=== PATIENT | female | born 1950 | race Caucasian/White ===

== ENCOUNTER 2017-04-11 14:11 | Observation (INO) | payer MEDICARE ==
[2017-04-11] VITALS (10 sets, daily range): BP systolic 119–167; BP diastolic 66–80; PULSE 63–86; RESP 14–17; TEMP 97.5–98.1; O2SAT 94–97
[~2017-04-11 14:11] MED LIST: AMLO10TA2 PO; DULO20 PO; GLIM4TAB PO; LISI10TA PO; MECL1TAB42 PO; MELO-1 PO; ZEGE20CA4 PO
[2017-04-11] MEDS ORDERED: LISI-515 PO (14:27)
[2017-04-11] MEDS ORDERED: ASPIRIN 325 MG TAB PO ONE (14:30)
[2017-04-11] MEDS ORDERED: SODIUM CHLORIDE 0.9% FLUSH 10 ML FLUSH IVF PRN (14:30)
[2017-04-11] MEDS: NITROGLYCERIN 0.4 MG SL 25 TABS/BTL SL SCH ×3 (14:36→15:06)
[2017-04-11 14:48] LABS: AUTOMATED NEUTROPHIL # 6.1 TH/MM3 (1.8-7.7); BASOPHIL # 0.1 TH/MM3 (0-0.2); BASOPHIL % 0.8 % (0.0-2.0); EOSINOPHIL # 0.2 TH/MM3 (0-0.4); EOSINOPHIL % 1.5 % (0.0-4.0); HEMATOCRIT 42.5 % (35.0-46.0); HEMO FLAGS DIFF FINAL; LYMPH % 29.9 % (9.0-44.0); LYMPHOCYTE # 3.1 TH/MM3 (1.0-4.8); MEAN CORPUSCULAR HEMOGLOBIN 28.6 PG (27.0-34.0); MEAN CORPUSCULAR HGB CONC 32.5 % (32.0-36.0); MONO % 7.7 % (0.0-8.0); NEUT % 60.1 % (16.0-70.0); PLATELET COUNT 301 TH/MM3 (150-450); RED BLOOD COUNT 4.83 MIL/MM3 (4.00-5.30); RED CELL DISTRIBUTION WIDTH 13.2 % (11.6-17.2); WHITE BLOOD COUNT 10.3 TH/MM3 (4.0-11.0)
--- NOTE | 2017-04-11 14:48 | PD ---
HPI Chief Complaint: Chest Pain Time Seen by Provider: 14:24 Travel History International Travel<30 days: No Contact w/Intl Traveler<30days: No Traveled to known affect area: No History of Present Illness HPI Patient is a 66-year-old female with history of hypertension as well as diabetes , presents to emergency room with her daughter with complaints of chest pain. Patient reports that she woke up this morning around 8 AM with left-sided chest pain. Reports that this chest pain woke her from sleep this morning. Patient reports that she has been having sharp and stabbing pain, with associated shortness of breath. Patient denies any diaphoresis with her symptoms, denies any nausea or vomiting. Patient reports that she has had chest pain in the past , reports the symptoms were different from today's. She reports that chest pain is nonradiating in nature. Patient denies history of coronary artery disease, denies history of cardiac stents, DE in the past. Patient reports that she has history of angina in the past, reports that she was worked up in the hospital but no to follow-up with a microwave oven assembler as an outpatient. Patient also complaining of right eye pain'; reports that pain is sharp and stabbing in nature and radiates to the back of her head. PFSH Past Medical History Hx Anticoagulant Therapy: No Arthritis: Yes Asthma: No Autoimmune Disease: No Heart Rhythm Problems: No Cancer: No Cardiac Catheterization: No Cardiovascular Problems: Yes (HTN, angina) High Cholesterol: Yes Chemotherapy: No Chest Pain: Yes Congestive Heart Failure: No COPD: No Cerebrovascular Accident: Yes (POSSIBLE 2014) Diabetes: Yes Patient Takes Glucophage: No Diminished Hearing: No Endocrine: Yes Gastrointestinal Disorders: Yes (CONSTIPATION) GERD: Yes Genitourinary: No Headaches: Yes Hiatal Hernia: No Heparin Induced Thrombocytopen: No Hypertension: Yes Immune Disorder: No Implanted Vascular Access Dvce: No Kidney Stones: Yes Musculoskeletal: Yes Neurologic: No Psychiatric: No Reproductive: No Respiratory: No Migraines: Yes Pneumonia: Yes Radiation Therapy: No Renal Failure: No Seizures: No Sickle Cell Disease: No Sleep Apnea: No Thyroid Disease: No Ulcer: No Menopausal: Yes : 3 Para: 3 Ovarian Cysts: Yes Past Surgical History Abdominal Surgery: Yes (HYSTERECTOMY) AICD: No Arteriovenous Shunt: No Cardiac Surgery: No Coronary Artery Bypass Graft: No Ear Surgery: No Endocrine Surgery: No Eye Surgery: No Genitourinary Surgery: No Gynecologic Surgery: Yes (OOPHORECTOMY X2) Hysterectomy: No Insulin Pump: No Joint Replacement: No Neurologic Surgery: No Oral Surgery: No Thoracic Surgery: No Tonsillectomy: Yes Other Surgery: Yes (lipoma removal on right arm) Family History Family Myocardial Infarction: No Social History Alcohol Use: No Tobacco Use: No Substance Use: No Allergies-Medications (Allergen,Severity, Reaction): Coded Allergies: Penicillin (Verified Allergy, Severe, HIVES/THROAT SWELLING, 04/11/17) Latex (Verified Allergy, Intermediate, Hives, 04/11/17) Metformin (Verified Allergy, Intermediate, GI UPSET, 04/11/17) Uncoded Allergies: INSULIN (Allergy, Intermediate, Rash, 12/15/16) no narcotics lowers b/p too much (Adverse Reaction, Severe, b/p drops with all narcotics, 02/10/14) Reported Meds & Prescriptions Reported Meds & Active Scripts Active Reported Lisinopril 20 Mg Tab 20 Mg PO DAILY Zegerid (Omeprazole-Sodium Bicarbonate) 20-1,100 Mg Cap 1 Cap PO DAILY Cymbalta DR (Duloxetine HCl) 20 Mg Capdr 30 Mg PO DAILY Meloxicam 15 Mg Tab 15 Mg PO DAILY Glimepiride 4 Mg Tab 4 Mg PO BIDAC Review of Systems General / Constitutional: No: Fever Eyes: No: Visual changes HENT: Positive: Headaches Cardiovascular: Positive: Chest Pain or Discomfort Respiratory: Positive: Shortness of Breath, No: Cough Gastrointestinal: No: Abdominal Pain Genitourinary: No: Dysuria Musculoskeletal: No: Pain Skin: No Rash Neurologic: Positive: Headache, No: Weakness Psychiatric: No: Depression Endocrine: No: Polydipsia Hematologic/Lymphatic: No: Easy Bruising Physical Exam Narrative GENERAL: Moderate distress SKIN: Focused skin assessment warm/dry. HEAD: Atraumatic. Normocephalic. EYES: Pupils equal and round. No scleral icterus. No injection or drainage. ENT: No nasal bleeding or discharge. Mucous membranes pink and moist. NECK: Trachea midline. No JVD. CARDIOVASCULAR: Regular rate and rhythm. No murmur appreciated. RESPIRATORY: No accessory muscle use. Clear to auscultation. Breath sounds equal bilaterally. GASTROINTESTINAL: Abdomen soft, non-tender, nondistended. Hepatic and splenic margins not palpable. MUSCULOSKELETAL: No obvious deformities. No clubbing. No cyanosis. No edema. NEUROLOGICAL: Awake and alert. No obvious cranial nerve deficits. Motor grossly within normal limits. Normal speech. PSYCHIATRIC: Appropriate mood and affect; insight and judgment normal. Data Data Last Documented VS Vital Signs Date Time Temp Pulse Resp B/P Pulse Ox O2 Delivery O2 Flow Rate FiO2 04/11/17 15:04 68 15 129/75 94 04/11/17 14:43 Room Air 04/11/17 14:22 98.1 Orders Electrocardiogram (04/11/17 14:25) B-Type Natriuretic Peptide (04/11/17 14:25) Ckmb (Isoenzyme) Profile (04/11/17 14:25) Complete Blood Count With Diff (04/11/17 14:25) Comprehensive Metabolic Panel (04/11/17 14:25) Magnesium (Mg) (04/11/17 14:25) Prothrombin Time / Inr (Pt) (04/11/17 14:25) Act Partial Throm Time (Ptt) (04/11/17 14:25) Troponin I (04/11/17 14:25) Lipase (04/11/17 14:25) Chest, Single Ap (04/11/17 14:25) Ecg Monitoring (04/11/17 14:25) Iv Access Insert/Monitor (04/11/17 14:25) Oximetry (04/11/17 14:25) Aspirin (Aspirin) (04/11/17 14:30) Sodium Chloride 0.9% Flush (Ns Flush) (04/11/17 14:30) Nitroglycerin Sl (Nitrostat Sl) (04/11/17 14:30) Acetaminophen (Tylenol) (04/11/17 15:15) Ct Brain W/O Iv Contrast(Rout) (04/11/17 ) Sodium Chlorid 0.9% 500 Ml Inj (Ns 500 M (04/11/17 15:15) Electrocardiogram (04/11/17 14:14) Labs Laboratory Tests Test 04/11/17 14:37 White Blood Count 10.3 TH/MM3 Red Blood Count 4.83 MIL/MM3 Hemoglobin 13.8 GM/DL Hematocrit 42.5 % Mean Corpuscular Volume 88.0 FL Mean Corpuscular Hemoglobin 28.6 PG Mean Corpuscular Hemoglobin 32.5 % Concent Red Cell Distribution Width 13.2 % Platelet Count 301 TH/MM3 Mean Platelet Volume 7.6 FL Neutrophils (%) (Auto) 60.1 % Lymphocytes (%) (Auto) 29.9 % Monocytes (%) (Auto) 7.7 % Eosinophils (%) (Auto) 1.5 % Basophils (%) (Auto) 0.8 % Neutrophils # (Auto) 6.1 TH/MM3 Lymphocytes # (Auto) 3.1 TH/MM3 Monocytes # (Auto) 0.8 TH/MM3 Eosinophils # (Auto) 0.2 TH/MM3 Basophils # (Auto) 0.1 TH/MM3 CBC Comment DIFF FINAL Differential Comment Prothrombin Time 10.7 SEC Prothromb Time International 1.0 RATIO Ratio Activated Partial 26.5 SEC Thromboplast Time Sodium Level 142 MEQ/L Potassium Level 4.0 MEQ/L Chloride Level 105 MEQ/L Carbon Dioxide Level 28.9 MEQ/L Anion Gap 8 MEQ/L Blood Urea Nitrogen 15 MG/DL Creatinine 0.82 MG/DL Estimat Glomerular Filtration 69 ML/MIN Rate Random Glucose 185 MG/DL Calcium Level 9.0 MG/DL Magnesium Level 1.9 MG/DL Total Bilirubin 0.3 MG/DL Aspartate Amino Transf 24 U/L (AST/SGOT) Alanine Aminotransferase 34 U/L (ALT/SGPT) Alkaline Phosphatase 71 U/L Total Creatine Kinase 67 U/L Troponin I LESS THAN 0.02 NG/ML B-Type Natriuretic Peptide 46 PG/ML Total Protein 7.3 GM/DL Albumin 3.5 GM/DL Lipase 111 U/L [facility] Medical Decision Making Medical Screen Exam Complete: Yes Emergency Medical Condition: Yes Interpretation(s) EKG at 1414 shows normal sinus rhythm at 76 beats for minute, patient has a left bundle branch block, left bundle branch block is seen on previous EKGs. EKG at 1423 shows normal sinus rhythm at 72 beats for minute, QT/QTc 422/447, left bundle branch block present, does not meet [place] criteria for acute DE EKG compared to previous ekg from 07/11/2016 Vital Signs Date Time Temp Pulse Resp B/P Pulse Ox O2 Delivery O2 Flow Rate FiO2 04/11/17 14:43 86 16 119/66 96 Room Air 04/11/17 14:27 96 Room Air 04/11/17 14:22 98.1 81 14 149/80 96 Differential Diagnosis Differential includes cephalgia, complicated migraine, ACS, arrhythmia, electrolyte abnormality Narrative Course Patient is a 66-year-old female who presents to emergency room with multiple complaints. Patient reports that she woke up this morning and has been having left-sided chest pain which is sharp and stabbing nature with associated shortness of breath. EKG was obtained, patient with left bundle branch block which is similar to previous EKGs. Placed on a environmental monitoring technician upon arrival to the emergency room. Aspirin as well as sublingual nitroglycerin ordered to see if this causes relief of pain. Lab work including cardiac enzymes ordered. Plan to monitor patient. Vital Signs Date Time Temp Pulse Resp B/P Pulse Ox O2 Delivery O2 Flow Rate FiO2 04/11/17 15:04 68 15 129/75 94 04/11/17 14:43 86 16 119/66 96 Room Air 04/11/17 14:27 96 Room Air 04/11/17 14:22 98.1 81 14 149/80 96 Laboratory Tests Test 04/11/17 14:37 White Blood Count 10.3 TH/MM3 (4.0-11.0) Red Blood Count 4.83 MIL/MM3 (4.00-5.30) Hemoglobin 13.8 GM/DL (11.6-15.3) Hematocrit 42.5 % (35.0-46.0) Mean Corpuscular Volume 88.0 FL (80.0-100.0) Mean Corpuscular Hemoglobin 28.6 PG (27.0-34.0) Mean Corpuscular Hemoglobin 32.5 % Concent (32.0-36.0) Red Cell Distribution Width 13.2 % (11.6-17.2) Platelet Count 301 TH/MM3 (150-450) Mean Platelet Volume 7.6 FL (7.0-11.0) Neutrophils (%) (Auto) 60.1 % (16.0-70.0) Lymphocytes (%) (Auto) 29.9 % (9.0-44.0) Monocytes (%) (Auto) 7.7 % (0.0-8.0) Eosinophils (%) (Auto) 1.5 % (0.0-4.0) Basophils (%) (Auto) 0.8 % (0.0-2.0) Neutrophils # (Auto) 6.1 TH/MM3 (1.8-7.7) Lymphocytes # (Auto) 3.1 TH/MM3 (1.0-4.8) Monocytes # (Auto) 0.8 TH/MM3 (0-0.9) Eosinophils # (Auto) 0.2 TH/MM3 (0-0.4) Basophils # (Auto) 0.1 TH/MM3 (0-0.2) CBC Comment DIFF FINAL Differential Comment Prothrombin Time 10.7 SEC (9.8-11.6) Prothromb Time International 1.0 RATIO Ratio Activated Partial 26.5 SEC Thromboplast Time (24.3-30.1) Sodium Level 142 MEQ/L (136-145) Potassium Level 4.0 MEQ/L (3.5-5.1) Chloride Level 105 MEQ/L (98-107) Carbon Dioxide Level 28.9 MEQ/L (21.0-32.0) Anion Gap 8 MEQ/L (5-15) Blood Urea Nitrogen 15 MG/DL (7-18) Creatinine 0.82 MG/DL (0.50-1.00) Estimat Glomerular Filtration 69 ML/MIN (>89) Rate Random Glucose 185 MG/DL (74-106) Calcium Level 9.0 MG/DL (8.5-10.1) Magnesium Level 1.9 MG/DL (1.5-2.5) Total Bilirubin 0.3 MG/DL (0.2-1.0) Aspartate Amino Transf 24 U/L (15-37) (AST/SGOT) Alanine Aminotransferase 34 U/L (10-53) (ALT/SGPT) Alkaline Phosphatase 71 U/L (45-117) Total Creatine Kinase 67 U/L (26-192) Troponin I LESS THAN 0.02 NG/ML (0.02-0.05) B-Type Natriuretic Peptide 46 PG/ML (0-100) Total Protein 7.3 GM/DL (6.4-8.2) Albumin 3.5 GM/DL (3.4-5.0) Lipase 111 U/L (73-393) Last Impressions Chest X-Ray 04/11/17 1425 Signed Impressions: Service Date/Time: Tuesday, April 11, 2017 14:35 - CONCLUSION: No acute disease. Chaparro Guzman MD Patient reevaluated, patient had complete relief of chest pain after 3 sublingual nitroglycerin. Patient with complete resolution of headache at this time. Plan to obs for chest pain. Physician Communication Physician Communication case reviewed with dr. dailey, who accepts pt to service Diagnosis Primary Impression: Chest pain Qualified Code: R07.9 - Chest pain, unspecified type Additional Impression: Cephalgia Qualified Code: R51 - Acute nonintractable headache, unspecified headache type Admitting Information Admitting Physician Requests: Observation Micaela Diego DO Apr 11, 2017 14:48
--- NOTE | 2017-04-11 14:54 | RADRPT ---
EXAM DATE/TIME: 04/11/2017 14:35 [facility] COMPARISON: No previous studies available for comparison. INDICATIONS : Chest pain, headache. MEDICAL HISTORY : Myocardial infarction. Hypertension SURGICAL HISTORY : None. ENCOUNTER: Initial ACUITY: 1 day PAIN SCORE: 7/10 LOCATION: Bilateral chest FINDINGS: A single view of the chest demonstrates the lungs to be symmetrically aerated without evidence of mas s, infiltrate or effusion. The cardiomediastinal contours are unremarkable. Osseous structures are intact. CONCLUSION: No acute disease. Chaparro Guzman MD on April 11, 2017 at 14:52 Board Certified Radiologist. This report was verified electronically.
[2017-04-11 14:58] LABS: CHLORIDE 105 MEQ/L (98-107); SODIUM (NA) 142 MEQ/L (136-145)
[2017-04-11 15:02] LABS: ANION GAP 8 MEQ/L (5-15); APTT (PATIENT) 26.5 SEC (24.3-30.1); BICARBONATE 28.9 MEQ/L (21.0-32.0); BLOOD UREA NITROGEN 15 MG/DL (7-18); MAGNESIUM 1.9 MG/DL (1.5-2.5); PROTHROMBIN TIME - PATIENT 10.7 SEC (9.8-11.6)
[2017-04-11 15:04] LABS: ALT (GPT) 34 U/L (10-53); AST (GOT) 24 U/L (15-37)
[2017-04-11 15:05] LABS: GLOMERULAR FILTRATION RATE 69 ML/MIN (>89)
[2017-04-11 15:06] LABS: TOTAL BILIRUBIN ADULT 0.3 MG/DL (0.2-1.0)
[2017-04-11 15:07] LABS: ALKALINE PHOSPHATASE 71 U/L (45-117)
[2017-04-11 15:08] LABS: CREATINE KINASE 67 U/L (26-192)
[2017-04-11] MEDS ORDERED: SODIUM CHLORID 0.9% 500 ML INJ 500 ML IV ONE (15:15)
[2017-04-11] MEDS ORDERED: ACETAMINOPHEN 500 MG CPLT PO ONE (15:15)
--- NOTE | 2017-04-11 15:58 | RADRPT ---
EXAM DATE/TIME: 04/11/2017 15:20 [facility] COMPARISON: No previous studies available for comparison. INDICATIONS : Headache. RADIATION DOSE: 65.02 CTDIvol (mGy) MEDICAL HISTORY : Cerebrovascular disease. Hypertension. Diabetes mellitus type 2.Migraine SURGICAL HISTORY : Hysterectomy. ENCOUNTER: Initial ACUITY: 1 day PAIN SCALE: 8/10 LOCATION: Right temporal and posterior cranium TECHNIQUE: Multiple contiguous axial images were obtained of the head. Using automated exposure control and adj ustment of the mA and/or kV according to patient size, radiation dose was kept as low as reasonably a chievable to obtain optimal diagnostic quality images. DICOM format image data is available electro nically for review and comparison. FINDINGS: CEREBRUM: The ventricles are normal for age. No evidence of midline shift, mass lesion, hemorrhage or acute in farction. No extra-axial fluid collections are seen. POSTERIOR FOSSA: The cerebellum and brainstem are intact. The 4th ventricle is midline. The cerebellopontine angle i s unremarkable. EXTRACRANIAL: The visualized portion of the orbits is intact. SKULL: The calvaria is intact. No evidence of skull fracture. CONCLUSION: 1. No acute intracranial abnormalities. Mucosal thickening left sphenoid sinus. Chaparro Guzman MD on April 11, 2017 at 15:54 Board Certified Radiologist. This report was verified electronically.
--- NOTE | 2017-04-11 17:09 | HHI.HP ---
[facility] Service [facility] Primary Care Physician Non-Staff Admission Diagnosis chest pain Diagnoses: Chief Complaint: Chest pain Travel History International Travel<30 Days: No Contact w/Intl Traveler <30 Da: No Traveled to Known Affected Are: No History of Present Illness Ms. Anna is a pleasant 66-year-old female with a history of hypertension, diabetes mellitus who presents to the emergency department due to chest pain. She woke up this morning around 8 AM with left-sided chest pain. She describes her pain as sharp and stabbing in quality. She reports no radiation of her chest pain and denies any diaphoresis or nausea or vomiting. She did have some associated shortness of breath. Denies any changes in bowel or bladder habits. Denies any cough, fever or chills. Review of Systems Except as stated in HPI: all other systems reviewed are Neg Past Family Social History Past Medical History Hypertension, depression, diabetes mellitus. Past Surgical History Hysterectomy, oophorectomy Reported Medications Lisinopril 20 Mg Tab 20 Mg PO DAILY Zegerid (Omeprazole-Sodium Bicarbonate) 20-1,100 Mg Cap 1 Cap PO DAILY Cymbalta DR (Duloxetine HCl) 20 Mg Capdr 30 Mg PO DAILY Meloxicam 15 Mg Tab 15 Mg PO DAILY Glimepiride 4 Mg Tab 4 Mg PO BIDAC Allergies: Coded Allergies: Penicillin (Verified Allergy, Severe, HIVES/THROAT SWELLING, 04/11/17) Latex (Verified Allergy, Intermediate, Hives, 04/11/17) Metformin (Verified Allergy, Intermediate, GI UPSET, 04/11/17) Uncoded Allergies: INSULIN (Allergy, Intermediate, Rash, 12/15/16) no narcotics lowers b/p too much (Adverse Reaction, Severe, b/p drops with all narcotics, 02/10/14) Family History No history of heart disease in the family. Social History Denies using tobacco, alcohol, illicit drugs. Physical Exam Vital Signs Vital Signs Date Time Temp Pulse Resp B/P Pulse Ox O2 Delivery O2 Flow Rate FiO2 04/11/17 15:04 68 15 129/75 94 04/11/17 14:43 86 16 119/66 96 Room Air 04/11/17 14:27 96 Room Air 04/11/17 14:22 98.1 81 14 149/80 96 Physical Exam GENERAL: This is a well-nourished, well-developed patient, in no apparent distress. SKIN: No rashes, ecchymoses or lesions. Warm and dry. HEAD: Atraumatic. Normocephalic. No temporal or scalp tenderness. EYES: Pupils equal round and reactive. No injection or drainage. ENT: Nose without bleeding, purulent drainage or septal hematoma. Airway patent. NECK: Trachea midline. No lymphadenopathy. Supple, nontender, no meningeal signs. CARDIOVASCULAR: Regular rate and rhythm without murmurs, gallops, or rubs. No JVD. RESPIRATORY: Clear to auscultation. Breath sounds equal bilaterally. No wheezes , rales, or rhonchi. GASTROINTESTINAL: Abdomen soft, non-tender, nondistended. No guarding. MUSCULOSKELETAL: Extremities without clubbing, cyanosis, or edema. NEUROLOGICAL: Awake and alert. Cranial nerves II through XII intact. No focal neurological deficits. Normal speech. Laboratory Laboratory Tests Test 04/11/17 14:37 White Blood Count 10.3 Red Blood Count 4.83 Hemoglobin 13.8 Hematocrit 42.5 Mean Corpuscular Volume 88.0 Mean Corpuscular Hemoglobin 28.6 Mean Corpuscular Hemoglobin 32.5 Concent Red Cell Distribution Width 13.2 Platelet Count 301 Mean Platelet Volume 7.6 Neutrophils (%) (Auto) 60.1 Lymphocytes (%) (Auto) 29.9 Monocytes (%) (Auto) 7.7 Eosinophils (%) (Auto) 1.5 Basophils (%) (Auto) 0.8 Neutrophils # (Auto) 6.1 Lymphocytes # (Auto) 3.1 Monocytes # (Auto) 0.8 Eosinophils # (Auto) 0.2 Basophils # (Auto) 0.1 CBC Comment DIFF FINAL Differential Comment Prothrombin Time 10.7 Prothromb Time International 1.0 Ratio Activated Partial 26.5 Thromboplast Time Sodium Level 142 Potassium Level 4.0 Chloride Level 105 Carbon Dioxide Level 28.9 Anion Gap 8 Blood Urea Nitrogen 15 Creatinine 0.82 Estimat Glomerular Filtration 69 Rate Random Glucose 185 Calcium Level 9.0 Magnesium Level 1.9 Total Bilirubin 0.3 Aspartate Amino Transf 24 (AST/SGOT) Alanine Aminotransferase 34 (ALT/SGPT) Alkaline Phosphatase 71 Total Creatine Kinase 67 Troponin I LESS THAN 0.02 B-Type Natriuretic Peptide 46 Total Protein 7.3 Albumin 3.5 Lipase 111 Result Diagram: 04/11/17 1437 04/11/17 1437 Imaging Last Impressions Chest X-Ray 04/11/17 1425 Signed Impressions: Service Date/Time: Tuesday, April 11, 2017 14:35 - CONCLUSION: No acute disease. Chaparro Guzman MD Head CT 04/11/17 0000 Signed Impressions: Service Date/Time: Tuesday, April 11, 2017 15:20 - CONCLUSION: 1. No acute intracranial abnormalities. Mucosal thickening left sphenoid sinus. Chaparro Guzman MD Assessment and Plan Problem List: (1) Chest pain ICD Code: R07.9 Status: Acute (2) Hypertension ICD Code: I10 Status: Acute (3) Diabetes ICD Code: E11.9 Status: Acute (4) GERD (gastroesophageal reflux disease) ICD Code: K21.9 Status: Acute Assessment and Plan Ms. Anna is a pleasant 66 year old female with a history of diabetes mellitus, hypertension who presents to the emergency department on 04/11/2017 with chest pain. Patient woke up at around 8 AM with left-sided sharp stabbing quality chest pain with no radiation or diaphoresis or nausea or vomiting. Patient's EKG showed left bundle branch block which was present previously as well. - Acute chest pain - Mostly atypical chest pain. Continue nitroglycerin patch. - Patient received aspirin in the ED. We'll continue aspirin 81 mg daily. - Troponins 2 negative so far. EKG reviewed by me shows left bundle branch block which is not a new finding. - We'll obtain lipid profile in the morning. Depending on her ASCVD score, initiate statin. - Hypertension - continue lisinopril 20 mg daily. - Diabetes mellitus - Start Levemir 7 units daily at bedtime and sliding scale insulin. - Hold off using by mouth medications for now. Full code. Lovenox 40mg Q24hrs. Problem Qualifiers (1) Chest pain: Qualified Code: R07.9 - Chest pain, unspecified type Jose Mims DO Apr 11, 2017 17:09
[2017-04-11] MEDS ORDERED: LACTULOSE SYRUP 20 GM/30 ML CUP PO PRN (17:15)
[2017-04-11] MEDS ORDERED: NALOXONE HCL 0.4 MG/ML AMP IV PRN (17:15)
[2017-04-11] MEDS ORDERED: SENNOSIDES 8.6 MG TAB PO PRN (17:15)
[2017-04-11] MEDS ORDERED: SODIUM CHLORIDE 0.9% FLUSH 10 ML FLUSH IV FLUSH PRN (17:15)
[2017-04-11] MEDS ORDERED: MAGNESIUM HYDROXIDE SUSP 30 ML CUP PO PRN (17:15)
[2017-04-11] MEDS ORDERED: ONDANSETRON HCL 4 MG/2 ML VIAL IVP PRN (17:15)
[2017-04-11] MEDS ORDERED: BISACODYL 10 MG SUPP RECTAL PRN (17:15)
[2017-04-11] MEDS ORDERED: NITROGLYCERIN 2% OINT 1 GM PACKET TOPICAL PRN (17:30)
[2017-04-11] MEDS ORDERED: ENOXAPARIN SODIUM 40 MG/0.4 ML SYRINGE SQ SCH (18:00)
[2017-04-11] MEDS ORDERED: GLUCAGON 1 MG/ML VIAL OTHER PRN (19:00)
[2017-04-11] MEDS ORDERED: DEXTROSE 50% IN WATER 50 ML VIAL(D50) IV PRN (19:00)
[2017-04-11] MEDS: ACETAMINOPHEN 325 MG TAB PO PRN (20:18)
[2017-04-11] MEDS: SODIUM CHLORIDE 0.9% FLUSH 10 ML FLUSH IV FLUSH SCH (20:22)
[2017-04-11] MEDS: DOCUSATE SODIUM 50 MG/SENNA 8.6 MG TAB PO SCH (20:22)
[2017-04-11] MEDS: INSULIN ASPART SUPPLEMENTAL SCALE SQ SCH (20:32)
[2017-04-11] MEDS ORDERED: INSULIN DETEMIR 100 UNITS/ML VIAL SQ SCH (21:00)
[2017-04-12] VITALS: BP 124/67; PULSE 64; RESP 20; TEMP 97.2; O2SAT 94
[2017-04-12 04:00] VITALS: BP 140/80; PULSE 72; RESP 18; TEMP 97.1; O2SAT 95
[2017-04-12] MEDS: INSULIN ASPART SUPPLEMENTAL SCALE SQ SCH ×2 (05:53→12:10)
[2017-04-12 08:36] VITALS: BP 148/105; PULSE 71; RESP 16; TEMP 97.2; O2SAT 97
[2017-04-12] MEDS ORDERED: DULoxetine HCl DR 30 MG CAP PO SCH (09:00)
[2017-04-12] MEDS ORDERED: ASPIRIN EC 81 MG TABEC PO SCH (09:00)
[2017-04-12] MEDS: SODIUM CHLORIDE 0.9% FLUSH 10 ML FLUSH IV FLUSH SCH (09:00)
[2017-04-12] MEDS ORDERED: LISINOPRIL 20 MG TAB PO SCH (09:00)
[2017-04-12 09:18] LABS: HDL CHOLESTEROL 34.4 MG/DL (40.0-60.0)
--- NOTE | 2017-04-12 09:25 | EKG ---
Date Performed: 04/11/2017 Time Performed: 22:00:56 PTAGE: 66 years EKG: Sinus rhythm WITH FREQUENT SUPRAVENTRICULAR PREMATURE COMPLEXES MARKED LEFT AXIS DEVIATION LEFT BUNDLE BRANCH BLO CK ABNORMAL ECG PREVIOUS TRACING : 04/11/2017 18.07 DOCTOR: Patrick Brown Interpretating Date/Time 04/12/2017 09:25:03
--- NOTE | 2017-04-12 09:36 | EKG ---
Date Performed: 04/11/2017 Time Performed: 18:07:49 PTAGE: 66 years EKG: Sinus rhythm WITH OCCASIONAL SUPRAVENTRICULAR PREMATURE COMPLEXES MARKED LEFT AXIS DEVIATION INTRAVENTRICULAR CON DUCTION DELAY ABNORMAL ECG PREVIOUS TRACING : 04/11/2017 14.23 DOCTOR: Patrick Brown Interpretating Date/Time 04/12/2017 09:34:26
--- NOTE | 2017-04-12 09:58 | EKG ---
Date Performed: 04/11/2017 Time Performed: 14:14:49 PTAGE: 66 years EKG: Sinus rhythm WITH FREQUENT SUPRAVENTRICULAR PREMATURE COMPLEXES MARKED LEFT AXIS DEVIATION LEFT BUNDLE BRANCH BLO CK LATERAL MYOCARDIAL INFARCTION INTERPRETATION BASED ON A DEFAULT AGE OF 40 YEARS NO PREVIOUS TRACING DOCTOR: Patrick Brown Interpretating Date/Time 04/12/2017 09:57:22
[2017-04-12] MEDS ORDERED: REGADENOSON INJ 0.4 MG/5 ML SYR IV ONE (10:17)
[2017-04-12] MEDS: ACETAMINOPHEN 325 MG TAB PO PRN (12:06)
[2017-04-12] MEDS: DOCUSATE SODIUM 50 MG/SENNA 8.6 MG TAB PO SCH (12:06)
[2017-04-12 13:12] VITALS: RESP 18
[2017-04-12] MEDS ORDERED: ASPI-99 PO (14:14)
--- NOTE | 2017-04-12 14:15 | HHI.DCPOC ---
Discharge Care Plan Diagnosis: (1) Hyperlipidemia (2) Hyperglycemia due to type 2 diabetes mellitus (3) Cephalgia (4) Diabetes (5) GERD (gastroesophageal reflux disease) (6) Chest pain (7) Hypertension (8) Family history of heart disease Goals to Promote Your Health * To prevent worsening of your condition and complications * To maintain your health at the optimal level Directions to Meet Your Goals Take your medications as prescribed Follow your dietary instruction Follow activity as directed Keep your appointments as scheduled Take your immunizations and boosters as scheduled If your symptoms worsen call your PCP, if no PCP go to Urgent Care Center or Emergency Room Smoking is Dangerous to Your Health. Avoid second hand smoke Call the 24-hour hour crisis hotline for domestic abuse at Dante Shrestha MD Apr 12, 2017 14:15
[2017-04-12] MEDS ORDERED: LIPI20TA PO (14:18)
--- NOTE | 2017-04-12 14:21 | HHI.DS ---
Discharge Summary Admission Date Apr 11, 2017 at 16:16 Discharge Date: Apr 12, 2017 Admitting Diagnosis chest pain (1) Chest pain ICD Code: R07.9 Diagnosis: Principal (2) Hypertension ICD Code: I10 Diagnosis: Principal (3) Diabetes ICD Code: E11.9 Diagnosis: Secondary (4) GERD (gastroesophageal reflux disease) ICD Code: K21.9 Diagnosis: Secondary Procedures none Brief History - From Admission Ms. Anna is a pleasant 66-year-old female with a history of hypertension, diabetes mellitus who presents to the emergency department due to chest pain. She woke up this morning around 8 AM with left-sided chest pain. She describes her pain as sharp and stabbing in quality. She reports no radiation of her chest pain and denies any diaphoresis or nausea or vomiting. She did have some associated shortness of breath. Denies any changes in bowel or bladder habits. Denies any cough, fever or chills. CBC/BMP: 04/11/17 1437 04/11/17 1437 Significant Findings Laboratory Tests Test 04/11/17 04/11/17 04/11/17 04/12/17 14:37 18:10 22:05 05:10 Estimat Glomerular Filtration 69 ML/MIN (>89) Rate Random Glucose 185 MG/DL (74-106) Troponin I LESS THAN 0.02 LESS THAN 0.02 LESS THAN 0.02 NG/ML NG/ML NG/ML (0.02-0.05) (0.02-0.05) (0.02-0.05) Triglycerides Level 163 MG/DL (42-150) HDL Cholesterol 34.4 MG/DL (40.0-60.0) Imaging Last Impressions Chest X-Ray 04/11/17 1425 Signed Impressions: Service Date/Time: Tuesday, April 11, 2017 14:35 - CONCLUSION: No acute disease. Chaparro Guzman MD Head CT 04/11/17 0000 Signed Impressions: Service Date/Time: Tuesday, April 11, 2017 15:20 - CONCLUSION: 1. No acute intracranial abnormalities. Mucosal thickening left sphenoid sinus. Chaparro Guzman MD PE at Discharge GENERAL: This is a well-nourished, well-developed patient, in no apparent distress. SKIN: No rashes, ecchymoses or lesions. Warm and dry. HEAD: Atraumatic. Normocephalic. No temporal or scalp tenderness. EYES: Pupils equal round and reactive. No injection or drainage. ENT: Nose without bleeding, purulent drainage or septal hematoma. Airway patent. NECK: Trachea midline. No lymphadenopathy. Supple, nontender, no meningeal signs. CARDIOVASCULAR: Regular rate and rhythm without murmurs, gallops, or rubs. No JVD. RESPIRATORY: Clear to auscultation. Breath sounds equal bilaterally. No wheezes , rales, or rhonchi. GASTROINTESTINAL: Abdomen soft, non-tender, nondistended. No guarding. MUSCULOSKELETAL: Extremities without clubbing, cyanosis, or edema. NEUROLOGICAL: Awake and alert. Cranial nerves II through XII intact. No focal neurological deficits. Normal speech. Pt update on day of discharge Denies chest pain, shortness of breath. Denies abdominal pain, nausea, vomiting , dictations. No arrhythmias on telemetry. Vital signs stable. Hospital Course Ms. Anna is a pleasant 66 year old female with a history of diabetes mellitus, hypertension who presents to the emergency department on 04/11/2017 with chest pain. Patient woke up at around 8 AM with left-sided sharp stabbing quality chest pain with no radiation or diaphoresis or nausea or vomiting. Patient's EKG showed left bundle branch block which was present previously as well. The patient was placed under observation in the medical floor monitor on telemetry for acute chest pain. Patient was placed on a nitroglycerin patch, received aspirin in the emergency department which was continued. Troponins were negative 2. EKG showed a left bundle branch block which upon review of previous EKGs was not new. Lipid profile was obtained and the patient was started on a statin as per her ASCVD score. Lisinopril was continued to treat the patient's hypertension which for the most part remain controlled during the hospital stay. Patient was started Levemir 7 units daily at bedtime and placed on SSI with insulin NovoLog and oral medications held during patient's admission to the hospital. The patient was placed on Lovenox and potassium for DVT prophylaxis. Patient underwent a nuclear stress testing which was unremarkable and the patient was discharged home. Pt Condition on Discharge: Stable Discharge Disposition: Discharge Home Discharge Time: <= 30 minutes Discharge Instructions DIET: Follow Instructions for: Heart Healthy Diet, Diabetic Diet Activities you can perform: Regular-No Restrictions Follow up Referrals: PCP Follow-up - 2 Weeks New Medications: Atorvastatin (Lipitor) 20 Mg Tab 20 MG PO HS Cholesterol Management #30 Ref [address] (Adult Aspirin EC Low Strength) 81 Mg Tabec 81 MG PO DAILY Blood Clot Prevention #31 TAB Continued Medications: Duloxetine DR (Cymbalta DR) 20 Mg Capdr 30 MG PO DAILY #30 Ref 0 CAP Glimepiride (Glimepiride) 4 Mg Tab 4 MG PO BIDAC Blood Sugar Management Ref 0 TAB Lisinopril (Lisinopril) 20 Mg Tab 20 MG PO DAILY #30 Ref 0 TAB Meloxicam (Meloxicam) 15 Mg Tab 15 MG PO DAILY Arthritis Pain #30 Ref 0 TAB Omeprazole-Sodium Bicarbonate (Zegerid) 20-1,100 Mg Cap 1 CAP PO DAILY #30 Ref 0 CAP Dante Shrestha MD Apr 12, 2017 14:21
[2017-04-12] MEDS ORDERED: ATORVASTATIN 20 MG TAB PO ONE (14:30)
[2017-04-12 17:19] LABS: HEMOGLOBIN A1a 1.3 %; HEMOGLOBIN A1b 2.1 %; HEMOGLOBIN Ao 82.4 %; HEMOGLOBIN LA1C 2.3 %
--- NOTE | 2017-04-13 09:41 | RADRPT ---
EXAM DATE/TIME: 04/12/2017 10:05 [facility] COMPARISON: MYOCARDIAL PERF PHARM SPECT, GATED W/EF, July 24, 2015, 10:48. INDICATIONS : Left chest pain with dyspnea. Abnormal EKG. Left bundle branch block. DOSE: 26.7 mCi Tc99m Myoview at stress. 8.6 mCi Tc99m Myoview at rest. 0.4 mg Lexiscan STRESS SYMPTOMS: Warm feeling. EJECTION FRACTION: 57% MEDICAL HISTORY : Myocardial infarction. Diabetes mellitus type 2. Gastroesophageal reflux disease. Hypertension. Strok e. SURGICAL HISTORY : Tonsillectomy. Hysterectomy. Oophorectomy. ENCOUNTER: Initial ACUITY: 1 day PAIN SCALE: 7/10 LOCATION: Left chest TECHNIQUE: The patient underwent pharmacologic stress with infusion of prescribed dose. Continuous ECG tracing was monitored during stress. Gated SPECT imaging was performed after stress and conventional SPECT i maging was performed at rest. The examination was performed on a SPECT/CT scanner, both attenuation and non-corrected datasets were reviewed. FINDINGS: DISTRIBUTION: The maximum perfused segment at stress is in the lateral wall. PERFUSION STUDY: The pattern of perfusion at stress is within normal limits. GATED STUDY: There is intact wall motion and thickening without hypokinetic or dyskinetic segments. CONCLUSION: Unremarkable myocardial perfusion scan. RISK CATEGORY: Low (<1% Annual Mortality Rate) Lauri Anderson MD on April 12, 2017 at 11:51 Board Certified Radiologist. This report was verified electronically.
--- NOTE | 2017-04-14 13:28 | TR ---
Date Performed: 04/12/2017 Time Performed: 10:27:55 DOCTOR: Lauri Pratt DRUG LIST: LiSINOPRIL ASA HCTZ Nitro AmLODIPINE CLINICAL HISTORY: CHEST PAIN LBBB REASON FOR TEST: Angina REASON FOR ENDING: OBSERVATION: CONCLUSION: Lexiscan stress test was performed under standard four minute protocol. Radionuclid e was injected one minute prior to ending the test. LBBB present throughout infusion. Nuclear imaging and interpretation are pending. COMMENTS:
== END 2017-04-12 15:41 | disposition home or self-care (01) ==
LOC: PHED 14:11 → PHEDA 16:16 → PH3B 17:11
PROVIDERS: ADMIT Hospitalist; ATTEND Hospitalist
DX: R07.89 Other chest pain (principal); I10 Essential (primary) hypertension; E11.65 Type 2 diabetes mellitus with hyperglycemia; K21.9 Gastro-esophageal reflux disease without esophagitis; R06.02 Shortness of breath; H57.11 Ocular pain, right eye; R51 Headache; R06.00 Dyspnea, unspecified; R94.31 Abnormal electrocardiogram [ECG] [EKG]; I44.7 Left bundle-branch block, unspecified; I20.9 Angina pectoris, unspecified; I25.2 Old myocardial infarction; E78.5 Hyperlipidemia, unspecified; E78.00 Pure hypercholesterolemia, unspecified; F32.9 Major depressive disorder, single episode, unspecified; M19.90 Unspecified osteoarthritis, unspecified site; Z79.899 Other long term (current) drug therapy; Z82.49 Family history of ischemic heart disease and other diseases of the circulatory system
CPT/HCPCS: 70450; 71010; 78452; 80053; 80061; 82550; 82948; 83036; 83690; 83735; 83880; 84484; 85025; 85610; 85730; 93005; 93017; 96360; 99285; A9502; G0378; J1650; J1815; J2785; J7040

== ENCOUNTER 2017-07-14 21:03 | Emergency (ER) | payer MEDICARE ==
[~2017-07-14] VITALS: Ht 152.4 cm; Wt 77.4 kg
[~2017-07-14 21:03] MED LIST changes: -AMLO10TA2 PO; +ASPI-99 PO; +LIPI20TA PO; +LISI-515 PO; -LISI10TA PO; -MECL1TAB42 PO
[2017-07-14 21:14] VITALS: BP 144/81; PULSE 92; RESP 20; TEMP 98.6; O2SAT 97
[2017-07-14] MEDS ORDERED: ALEV220T14 PO (21:23)
--- NOTE | 2017-07-14 21:36 | PD ---
HPI Chief Complaint: Pain: Acute or Chronic Time Seen by Provider: 21:27 Travel History International Travel<30 days: No Contact w/Intl Traveler<30days: No Traveled to known affect area: No History of Present Illness HPI 67-year-old female here for evaluation of left shoulder pain. The patient reports that the pain started 3 days ago after waking up from sleep. Pain is been constant, worsening, moderate to severe, worse with movement and palpation. She denies any trauma. She reports history of arthritis, however she states this pain feels a lot worse than her usual arthritic pains. She has taken Aleve without improvement in symptoms. No fevers. No chest pain. Chart review shows that the patient was admitted to the chest pain center in April of this year and had a normal nuclear stress test. PFSH Past Medical History Hx Anticoagulant Therapy: No Arthritis: Yes Asthma: No Autoimmune Disease: No Heart Rhythm Problems: No Cancer: No Cardiac Catheterization: No Cardiovascular Problems: Yes (HTN, angina) High Cholesterol: Yes Chemotherapy: No Chest Pain: Yes Congestive Heart Failure: No COPD: No Cerebrovascular Accident: Yes (POSSIBLE 2014) Diabetes: Yes Patient Takes Glucophage: Yes Diminished Hearing: No Endocrine: Yes Gastrointestinal Disorders: Yes (CONSTIPATION) GERD: Yes Genitourinary: No Headaches: Yes Hiatal Hernia: No Heparin Induced Thrombocytopen: No Hypertension: Yes Immune Disorder: No Implanted Vascular Access Dvce: No Kidney Stones: Yes Musculoskeletal: Yes Neurologic: No Psychiatric: No Reproductive: No Respiratory: No Migraines: Yes Pneumonia: Yes Radiation Therapy: No Renal Failure: No Seizures: No Sickle Cell Disease: No Sleep Apnea: No Thyroid Disease: No Ulcer: No ?: Not Menopausal: Yes : 3 Para: 3 Ovarian Cysts: Yes Past Surgical History Abdominal Surgery: Yes (HYSTERECTOMY) AICD: No Arteriovenous Shunt: No Cardiac Surgery: No Coronary Artery Bypass Graft: No Ear Surgery: No Endocrine Surgery: No Eye Surgery: No Genitourinary Surgery: No Gynecologic Surgery: Yes (OOPHORECTOMY X2) Hysterectomy: Yes Insulin Pump: No Joint Replacement: No Neurologic Surgery: No Oral Surgery: No (tonsillectomy ) Thoracic Surgery: No Tonsillectomy: Yes Other Surgery: Yes (lipoma removal on right arm) Family History Family Myocardial Infarction: No Social History Alcohol Use: No Tobacco Use: No Substance Use: No Allergies-Medications (Allergen,Severity, Reaction): Coded Allergies: penicillin G (Unverified Allergy, Severe, HIVES/THROAT SWELLING, 07/14/17) latex (Unverified Allergy, Intermediate, Hives, 07/14/17) metformin (Unverified Allergy, Intermediate, GI UPSET, 07/14/17) Uncoded Allergies: INSULIN (Allergy, Intermediate, Rash, 12/15/16) no narcotics lowers b/p too much (Adverse Reaction, Severe, b/p drops with all narcotics, 02/10/14) Reported Meds & Prescriptions Reported Meds & Active Scripts Active Lipitor (Atorvastatin Calcium) 20 Mg Tab 20 Mg PO HS Adult Aspirin EC Low Strength (Aspirin) 81 Mg Tabec 81 Mg PO DAILY Reported Aleve Arthritis (Naproxen Sodium) 220 Mg Tab 220 Mg PO BID Lisinopril 20 Mg Tab 20 Mg PO DAILY Zegerid (Omeprazole-Sodium Bicarbonate) 20-1,100 Mg Cap 1 Cap PO DAILY Cymbalta DR (Duloxetine HCl) 20 Mg Capdr 30 Mg PO DAILY Meloxicam 15 Mg Tab 15 Mg PO DAILY Glimepiride 4 Mg Tab 4 Mg PO BIDAC Review of Systems Except as stated in HPI: all other systems reviewed are Neg Physical Exam Narrative GENERAL: Well-developed, well-nourished, no apparent distress. SKIN: Focused skin assessment warm/dry. No rash. HEAD: Atraumatic. Normocephalic. EYES: Pupils equal and round. No scleral icterus. No injection or drainage. ENT: Mucous membranes pink and moist. NECK: Trachea midline. No JVD. CARDIOVASCULAR: Regular rate and rhythm. Bilateral distal radial pulses are brisk and equal. RESPIRATORY: No accessory muscle use. Clear to auscultation. Breath sounds equal bilaterally. MUSCULOSKELETAL: Left shoulder without obvious deformity, with diffuse tenderness, without overlying warmth and erythema, with limited range of motion secondary to pain. The rest of the patient's joints and extremities are without deformity, without tenderness, with normal range of motion. There is mild left lateral neck tenderness. No midline cervical spine step-off or tenderness. NEUROLOGICAL: Awake and alert. No obvious cranial nerve deficits. Motor grossly within normal limits. Normal speech. [employer] strength normal and equal bilaterally. Normal sensation in bilateral upper extremities. PSYCHIATRIC: Appropriate mood and affect; insight and judgment normal. Data Data Last Documented VS Vital Signs Date Time Temp Pulse Resp B/P (MAP) Pulse Ox O2 Delivery O2 Flow Rate FiO2 07/14/17 22:20 74 16 143/79 (100) 96 140/71 (94) 07/14/17 21:14 98.6 Orders Orders Electrocardiogram (07/14/17 21:33) Basic Metabolic Panel (Bmp) (07/14/17 21:33) Ckmb (Isoenzyme) Profile (07/14/17 21:33) Complete Blood Count With Diff (07/14/17 21:33) Prothrombin Time / Inr (Pt) (07/14/17 21:33) Act Partial Throm Time (Ptt) (07/14/17 21:33) Troponin I (07/14/17 21:33) Chest, Single Ap (07/14/17 21:33) Ecg Monitoring (07/14/17 21:33) Bilateral Bp Monitoring (07/14/17 21:33) Iv Access Insert/Monitor (07/14/17 21:33) Oximetry (07/14/17 21:33) Sodium Chloride 0.9% Flush (Ns Flush) (07/14/17 21:45) Shoulder, Complete (>2vws) (07/14/17 ) Tramadol (Ultram) (07/14/17 21:45) Labs Laboratory Tests Test 07/14/17 22:00 White Blood Count 10.4 TH/MM3 Red Blood Count 4.93 MIL/MM3 Hemoglobin 14.0 GM/DL Hematocrit 42.0 % Mean Corpuscular Volume 85.2 FL Mean Corpuscular Hemoglobin 28.5 PG Mean Corpuscular Hemoglobin Concent 33.4 % Red Cell Distribution Width 13.2 % Platelet Count 340 TH/MM3 Mean Platelet Volume 7.3 FL Neutrophils (%) (Auto) 60.7 % Lymphocytes (%) (Auto) 31.9 % Monocytes (%) (Auto) 5.2 % Eosinophils (%) (Auto) 1.6 % Basophils (%) (Auto) 0.6 % Neutrophils # (Auto) 6.3 TH/MM3 Lymphocytes # (Auto) 3.3 TH/MM3 Monocytes # (Auto) 0.5 TH/MM3 Eosinophils # (Auto) 0.2 TH/MM3 Basophils # (Auto) 0.1 TH/MM3 CBC Comment DIFF FINAL Differential Comment Prothrombin Time 10.7 SEC Prothromb Time International Ratio 1.0 RATIO Activated Partial Thromboplast Time 26.6 SEC Blood Urea Nitrogen 16 MG/DL Creatinine 0.95 MG/DL Random Glucose 197 MG/DL Calcium Level 9.0 MG/DL Sodium Level 135 MEQ/L Potassium Level 3.7 MEQ/L Chloride Level 100 MEQ/L Carbon Dioxide Level 27.4 MEQ/L Anion Gap 8 MEQ/L Estimat Glomerular Filtration Rate 58 ML/MIN Total Creatine Kinase 83 U/L Troponin I LESS THAN 0.02 NG/ML MDM Medical Decision Making Medical Screen Exam Complete: Yes Emergency Medical Condition: Yes Interpretation(s) EKG: Sinus, rate 79, leftward axis, LBBB, unchanged from prior. Differential Diagnosis Osteoarthritis, rotator cuff pain, ACS, brachial plexus injury, septic arthritis unlikely Narrative Course Vital signs show heart rate 74, blood pressure 143/79, pulse ox 96% on room air , oral temp of 98.6 degrees Fahrenheit. CBC is unremarkable. BMP is unremarkable aside from a random glucose of 497. Cardiac enzymes are negative. Chest x-ray: No active disease. Left shoulder x-ray: Osteoporosis of the left shoulder, no acute findings. Patient was given a dose of tramadol with only mild relief of symptoms. I do not believe her symptoms are cardiac in nature. I also do not believe she has a septic arthritis. At this point I believe she is stable for discharge home with outpatient follow-up with her primary care physician as well as an orthopedist this week. She was informed on when to return to the emergency department. She verbalizes understanding and agreement with plan. Diagnosis Primary Impression: Left shoulder pain Qualified Codes: M25.512 - Pain in left shoulder Additional Impression: Osteoarthritis Qualified Codes: M19.012 - Primary osteoarthritis, left shoulder Referrals: Della Moyer MD 3 days Orthopedist Primary Care Physician 3 days Additional Instructions: Follow-up with your primary care physician this week. Follow-up with orthopedist Dr. Moyer or an orthopedist of your choice this week. Return to the emergency department for worsening symptoms or any other concerns. Scripts Tramadol (Tramadol) 50 Mg Tab 50 MG PO Q8H Y for PAIN, #15 TAB 0 Refills Prov: Talon Fry MD 07/14/17 Disposition: 01 DISCHARGE HOME Condition: Stable Talon Fry MD Jul 14, 2017 21:36
[2017-07-14] MEDS ORDERED: traMADol HCL 50 MG TAB PO ONE (21:45)
[2017-07-14] MEDS ORDERED: SODIUM CHLORIDE 0.9% FLUSH 10 ML FLUSH IVF PRN (21:45)
[2017-07-14 22:09] LABS: AUTOMATED NEUTROPHIL # 6.3 TH/MM3 (1.8-7.7); BASOPHIL # 0.1 TH/MM3 (0-0.2); BASOPHIL % 0.6 % (0.0-2.0); EOSINOPHIL # 0.2 TH/MM3 (0-0.4); EOSINOPHIL % 1.6 % (0.0-4.0); HEMO FLAGS DIFF FINAL; LYMPH % 31.9 % (9.0-44.0); LYMPHOCYTE # 3.3 TH/MM3 (1.0-4.8); MEAN CELL VOLUME 85.2 FL (80.0-100.0); MEAN CORPUSCULAR HEMOGLOBIN 28.5 PG (27.0-34.0); MEAN CORPUSCULAR HGB CONC 33.4 % (32.0-36.0); MONO % 5.2 % (0.0-8.0); NEUT % 60.7 % (16.0-70.0); PLATELET COUNT 340 TH/MM3 (150-450); RED BLOOD COUNT 4.93 MIL/MM3 (4.00-5.30); RED CELL DISTRIBUTION WIDTH 13.2 % (11.6-17.2); WHITE BLOOD COUNT 10.4 TH/MM3 (4.0-11.0)
[2017-07-14 22:19] LABS: CHLORIDE 100 MEQ/L (98-107); POTASSIUM 3.7 MEQ/L (3.5-5.1); SODIUM (NA) 135 MEQ/L (136-145)
[2017-07-14 22:20] VITALS: BP_SYST 140; BP_SYST 143; BP_DIAS 71; BP_DIAS 79; PULSE 74; RESP 16; O2SAT 96
[2017-07-14 22:22] LABS: ANION GAP 8 MEQ/L (5-15); BICARBONATE 27.4 MEQ/L (21.0-32.0); BLOOD UREA NITROGEN 16 MG/DL (7-18)
[2017-07-14 22:25] LABS: APTT (PATIENT) 26.6 SEC (24.3-30.1); PROTHROMBIN TIME - PATIENT 10.7 SEC (9.8-11.6)
[2017-07-14 22:26] LABS: GLOMERULAR FILTRATION RATE 58 ML/MIN (>89)
--- NOTE | 2017-07-14 22:28 | RADRPT ---
EXAM DATE/TIME: 07/14/2017 21:57 [facility] COMPARISON: No previous studies available for comparison. INDICATIONS : Left shoulder pain. No known injury. MEDICAL HISTORY : Myocardial infarction. Gastroesophageal reflux disease. Stroke. Cerebrovascular disease. Hyperten dameon. Diabetes mellitus type 2.Migraine SURGICAL HISTORY : Tonsillectomy. Hysterectomy. Oophorectomy. ENCOUNTER: Initial ACUITY: 3 days PAIN SCORE: 7/10 LOCATION: Left upper extremity FINDINGS: Multiple view examination of the left shoulder demonstrates no evidence of fracture or dislocation. M oderate osteoarthritis of the a.c. joint. Mild osteoarthritis of the shoulder joint. There is normal range of motion between internal and external rotation. Bony mineralization is normal. CONCLUSION: 1. Osteoarthritis of the left shoulder as above. No acute findings. Chaparro Guzman MD on July 14, 2017 at 22:26 Board Certified Radiologist. This report was verified electronically.
--- NOTE | 2017-07-14 22:29 | RADRPT ---
EXAM DATE/TIME: 07/14/2017 21:57 [facility] COMPARISON: CHEST SINGLE AP, April 11, 2017, 14:35. INDICATIONS : Left chest and shoulder pain. MEDICAL HISTORY : Myocardial infarction. Gastroesophageal reflux disease. Stroke. Cerebrovascular disease. Hyperten dameon. Diabetes mellitus type 2.Migraine SURGICAL HISTORY : Hysterectomy. Tonsillectomy. Oophorectomy. ENCOUNTER: Initial ACUITY: 3 days PAIN SCORE: 7/10 LOCATION: Left chest FINDINGS: A single view of the chest demonstrates no focal consolidation or effusion. No pneumothorax. Heart si ze within normal limits. Tortuous aorta. Scoliosis. CONCLUSION: 1. No active disease. Scoliosis. Chaparro Guzman MD on July 14, 2017 at 22:26 Board Certified Radiologist. This report was verified electronically.
[2017-07-14 22:36] LABS: CREATINE KINASE 83 U/L (26-192)
[2017-07-14] MEDS ORDERED: TRAM50TA PO (23:25)
[2017-07-14 23:47] VITALS: BP 139/78
--- NOTE | 2017-07-15 05:02 | EKG ---
Date Performed: 07/14/2017 Time Performed: 21:50:45 PTAGE: 67 years EKG: Sinus rhythm MARKED LEFT AXIS DEVIATION LEFT BUNDLE BRANCH BLOCK POSSIBLE LATERAL MYOCARDIAL INFARCTION ABNORMAL ECG PREVIOUS TRACING : 04/11/2017 22.00 DOCTOR: Frandy Ghosh Interpretating Date/Time 07/15/2017 05:02:15
== END 2017-07-14 23:52 | disposition home or self-care (01) ==
LOC: PHED 21:03
DX: M25.512 Pain in left shoulder (principal); M19.012 Primary osteoarthritis, left shoulder; M81.0 Age-related osteoporosis without current pathological fracture; I44.7 Left bundle-branch block, unspecified; R94.31 Abnormal electrocardiogram [ECG] [EKG]; I10 Essential (primary) hypertension; E78.00 Pure hypercholesterolemia, unspecified; E11.9 Type 2 diabetes mellitus without complications; K21.9 Gastro-esophageal reflux disease without esophagitis
CPT/HCPCS: 71010; 73030; 80048; 82550; 84484; 85025; 85610; 85730; 93005

== ENCOUNTER → 2017-11-03 | Outpatient (CLI) | payer MEDICARE ==
[~2017-11-03] MED LIST changes: +ALEV220T14 PO; -ASPI-99 PO; +ASPI1TAB56 PO; -MELO-1 PO; +MELO15TA20 PO; +TRAM50TA PO
[2017-11-03 12:16] LABS: ALBUMIN 3.7 GM/DL (3.4-5.0); AST (GOT) 22 U/L (15-37); BICARBONATE 28.5 MEQ/L (21.0-32.0); BLOOD UREA NITROGEN 15 MG/DL (7-18); CALCIUM 8.9 MG/DL (8.5-10.1); CHLORIDE 106 MEQ/L (98-107); CHOLESTEROL 183 MG/DL (120-200); CREATININE 0.91 MG/DL (0.50-1.00); GLOMERULAR FILTRATION RATE 61 ML/MIN (>89); GLUCOSE,FASTING 213 MG/DL (74-99); SODIUM (NA) 142 MEQ/L (136-145); TRIGLYCERIDES 124 MG/DL (42-150)
[2017-11-03 12:19] LABS: ALKALINE PHOSPHATASE 87 U/L (45-117); ALT (GPT) 30 U/L (10-53); CHOLESTEROL/ HDL RATIO 4.71 RATIO; HDL CHOLESTEROL 38.8 MG/DL (40.0-60.0); LDL CHOLESTEROL 119 MG/DL (0-99); TOTAL BILIRUBIN ADULT 0.3 MG/DL (0.2-1.0); TOTAL PROTEIN 7.5 GM/DL (6.4-8.2)
[2017-11-03 15:25] LABS: HEMOGLOBIN A1C 8.9 % (4.3-6.0)
== END ==
LOC: PLAB 08:38
PROVIDERS: ATTEND Family Medicine
DX: E78.2 Mixed hyperlipidemia (principal); I10 Essential (primary) hypertension; E11.65 Type 2 diabetes mellitus with hyperglycemia
CPT/HCPCS: 36415; 80053; 80061; 83036

== ENCOUNTER 2018-08-08 14:28 | Observation (INO) ==
--- NOTE | 2018-08-08 14:59 | XR ---
EXAM DATE: 08/08/2018 2:56 PM EDT AGE/SEX: 68 years / Female INDICATIONS: Chest pain and shortness of breath. CLINICAL DATA: This is the patient's initial encounter. Patient reports that signs and symptoms have been present for 1 day and indicates a pain score of 7/10. MEDICAL/SURGICAL HISTORY: Hypertension. Diabetes. None. COMPARISON: [facility], CHEST SINGLE AP, 07/14/2017. . FINDINGS: Moderate plaque lumbar scoliosis. Heart is minimally enlarged. Vascularity is normal. There is no ove rt congestive failure, pleural effusion or pneumothorax. CONCLUSION: Negative chest for acute disease Mild compensated cardiomegaly, stable from comparison study. Electronically signed by: Ellis Kiran MD 08/08/2018 2:57 PM EDT
[2018-08-08] MEDS ORDERED: Aspirin 325 MG Tablet PO ONE (15:00)
--- NOTE | 2018-08-08 15:10 | ED ---
HPI General Chief Complaint: Chest Pain Stated Complaint: chest pain Time Seen by Provider: 08/08/18 14:49 History of Present Illness HPI narrative: Patient presents to the emergency department department complaining of chest pain that started today around 10:00 this morning while she was in bed. Pain described as being left-sided, intermittent, minutes in duration, no aggravating or alleviating factors, pain is 7-8 out of 10, radiating to her neck and head, new onset. She denies fever, sweating, lower extremity edema, recent travel, abdominal pain, but reports shortness of breath and chronic back pain. Of note patient had a negative stress test April 12, 2017. Related Data Home Medications Medication Instructions Recorded Confirmed amlodipine 10 mg PO DAILY 04/25/18 08/08/18 duloxetine 1 cap PO DAILY 04/25/18 08/08/18 glimepiride 4 mg PO QAM 04/25/18 08/08/18 lisinopril 20 mg PO DAILY 04/25/18 08/08/18 meloxicam 15 mg PO DAILY 04/25/18 08/08/18 omeprazole-sodium bicarbonate 1 cap PO DAILY 04/25/18 08/08/18 tramadol 50 mg PO Q8H PRN 04/25/18 08/08/18 Allergies Allergy/AdvReac Type Severity Reaction Status Date / Time penicillin G Allergy Severe HIVES/THROAT Verified 08/08/18 14:35 SWELLING latex Allergy Intermediate Hives Verified 08/08/18 14:35 metformin Allergy Intermediate GI UPSET Verified 08/08/18 14:35 INSULIN Allergy Intermediate Rash Uncoded 08/08/18 14:35 no narcotics lowers b/p too AdvReac Severe b/p drops Uncoded 08/08/18 14:35 much with all narcotics Review of Systems ROS: all other systems reviewed are negative [facility] Medical History Medical History Chronic back pain (Acute) Diabetes (Acute) HTN (hypertension) (Acute) Herniated disc (Acute) History of hysterectomy (Acute) Sciatica (Acute) Social History Social History Substance History: No History of Abuse Smoking Status: Never smoker How Often Do You Have a Drink Containing Alcohol: Never Recent Travel in [place] within the Last 8 Weeks: No Recent Out of Country Travel within the Last 8 Weeks: No Immunization History Tetanus Immunization: Unsure Exam Narrative Exam Narrative: GENERAL: No acute distress. SKIN: Focused skin assessment warm/dry. HEAD: Atraumatic. Normocephalic. EYES: Pupils equal and round. No scleral icterus. No injection or drainage. ENT: No nasal bleeding or discharge. Mucous membranes pink and moist. NECK: Trachea midline. No JVD. CARDIOVASCULAR: Regular rate and rhythm. No murmur appreciated. RESPIRATORY: No accessory muscle use. Clear to auscultation. Breath sounds equal bilaterally. GASTROINTESTINAL: Abdomen soft, non-tender, nondistended. Hepatic and splenic margins not palpable. MUSCULOSKELETAL: No obvious deformities. No clubbing. No cyanosis. No edema. Right calf tender to palpation. NEUROLOGICAL: Awake and alert. No obvious cranial nerve deficits. Motor grossly within normal limits. Normal speech. PSYCHIATRIC: Appropriate mood and affect; insight and judgment normal. Course Initial Documented Vital Signs Temperature 97.7 F 08/08/18 14:31 Pulse Rate 68 08/08/18 14:31 Respiratory Rate 18 08/08/18 14:31 Blood Pressure 145/87 H 08/08/18 14:31 Pulse Oximetry 96 08/08/18 14:31 Last Documented Vital Signs Temperature 97.7 F 08/08/18 14:31 Pulse Rate 72 08/08/18 16:15 Respiratory Rate 18 08/08/18 16:15 Blood Pressure 131/71 08/08/18 16:15 Pulse Oximetry 94 L 08/08/18 16:15 Medical Decision Making [facility] Narrative Medical decision making narrative: Patient presents to the emergency department with chest pain. Patient placed on telemetry monitor, continuous pulse ox, and IV access obtained. EKG, chest x-ray, labs, aspirin 325 mg p.o., and nitroglycerin 1 sublingual tab 0.4 mg ordered. 1623: NTG helped the pain. Ordered another. Workup essentially negative, calling hospitalist for admission. 1700: Hospitalist request chest pain obs admission. Spoke to Trish from [facility], patient appropriate for [facility], admitted to [facility]. She's chest pain free, 0.5 in NTG applied to chest wall. U/S neg for DVT, stable cardiomegaly. 1st troponin negative. Medical Screen Exam Complete: Yes Emergency Medical Condition: Yes Lab Data Result diagrams: 08/08/18 15:11 08/08/18 15:11 Lab Results 08/08/18 08/08/18 08/08/18 Range/Units 15:11 15:11 15:11 WBC 8.6 (4.0-11.0) th/mm3 RBC 4.50 (4.00-5.30) mil/mm3 Hgb 13.8 (11.6-15.3) gm/dL Hct 39.4 (35.0-46.0) % MCV 87.5 (80.0-100.0) fL MCH 30.6 (27.0-34.0) pg MCHC 35.0 (32.0-36.0) % RDW 13.8 (11.6-17.2) % Plt Count 242 (150-450) th/mm3 MPV 7.6 (7.0-11.0) fL Neut % (Auto) 57.7 (16.0-70.0) % Lymph % (Auto) 31.6 (9.0-44.0) % [place] % (Auto) 8.2 H (0.0-8.0) % Eos % (Auto) 1.7 (0.0-4.0) % Baso % (Auto) 0.8 (0.0-2.0) % Neut # (Auto) 5.0 (1.8-7.7) th/mm3 Lymph # (Auto) 2.7 (1.0-4.8) th/mm3 [place] # (Auto) 0.7 (0.0-0.9) th/mm3 Eos # (Auto) 0.1 (0.0-0.4) th/mm3 Baso # (Auto) 0.1 (0.0-0.2) th/mm3 WBC Differential . Differential Comment Auto diff final PT (9.8-11.6) sec INR Ratio APTT (24.3-30.1) sec Sodium Cancelled Potassium Cancelled Chloride Cancelled Carbon Dioxide Cancelled Anion Gap Cancelled BUN Cancelled Creatinine Cancelled Estimated GFR Cancelled Random Glucose Cancelled Calcium Cancelled Prot Corrected Calcium Cancelled Magnesium (1.5-2.5) mg/dL Total Bilirubin Cancelled AST Cancelled ALT Cancelled Alkaline Phosphatase Cancelled Total Creatine Kinase (26-192) U/L CK-MB (CK-2) (0.5-3.6) ng/mL Troponin I Cancelled B-Natriuretic Peptide 18 (0-100) pg/mL Total Protein Cancelled Albumin Cancelled 08/08/18 08/08/18 Range/Units 15:11 15:11 WBC (4.0-11.0) th/mm3 RBC (4.00-5.30) mil/mm3 Hgb (11.6-15.3) gm/dL Hct (35.0-46.0) % MCV (80.0-100.0) fL MCH (27.0-34.0) pg MCHC (32.0-36.0) % RDW (11.6-17.2) % Plt Count (150-450) th/mm3 MPV (7.0-11.0) fL Neut % (Auto) (16.0-70.0) % Lymph % (Auto) (9.0-44.0) % [place] % (Auto) (0.0-8.0) % Eos % (Auto) (0.0-4.0) % Baso % (Auto) (0.0-2.0) % Neut # (Auto) (1.8-7.7) th/mm3 Lymph # (Auto) (1.0-4.8) th/mm3 [place] # (Auto) (0.0-0.9) th/mm3 Eos # (Auto) (0.0-0.4) th/mm3 Baso # (Auto) (0.0-0.2) th/mm3 WBC Differential Differential Comment PT 10.1 (9.8-11.6) sec INR 1.0 Ratio APTT 24.9 (24.3-30.1) sec Sodium 138 Potassium 4.0 Chloride 104 Carbon Dioxide 26.4 Anion Gap 8 BUN 22 H Creatinine 0.72 Estimated GFR 80 L Random Glucose 80 Calcium 9.2 Prot Corrected Calcium Magnesium 2.0 (1.5-2.5) mg/dL Total Bilirubin 0.2 AST 25 ALT 39 Alkaline Phosphatase 76 Total Creatine Kinase 175 (26-192) U/L CK-MB (CK-2) 2.8 (0.5-3.6) ng/mL Troponin I Less than 0.02 L B-Natriuretic Peptide (0-100) pg/mL Total Protein 7.5 Albumin 3.8 Imaging Data Radiologist's impression: Chest X-Ray 08/08/18 14:36 CONCLUSION: Negative chest for acute disease Mild compensated cardiomegaly, stable from comparison study. Venous Doppler Study 08/08/18 15:10 CONCLUSION: No venous thrombosis is identified within either lower extremity. ECG Data Attestation: I personally reviewed and interpreted this ECG as follows: (Sinus rhythm, left axis deviation, rate 71, left bundle branch block, negative for Sgarbossa criteria, similar to EKG July 14, 2017.) Discharge Plan Discharge Disposition Patient Disposition: 30 Still Patient Discharge Condition Condition: Stable Discharge Details Diagnosis: Chest pain Physicians Team ED Provider: Emerald Richey Primary Care Provider: Lori Flores Attending Provider: Lauri Pratt Discharge Interventions Interventions: Vital Signs Last Done: 08/08/18 16:15 Status ED Status: Admitted Observation Patient
[2018-08-08 15:31] LABS: Baso # (Auto) 0.1 th/mm3 (0.0-0.2); Baso % (Auto) 0.8 % (0.0-2.0); Eos # (Auto) 0.1 th/mm3 (0.0-0.4); Eos % (Auto) 1.7 % (0.0-4.0); Hematocrit 39.4 % (35.0-46.0); Hemoglobin 13.8 gm/dL (11.6-15.3); Lymph # (Auto) 2.7 th/mm3 (1.0-4.8); Lymph % (Auto) 31.6 % (9.0-44.0); Mean Corpuscular Hemoglobin 30.6 pg (27.0-34.0); Mean Corpuscular Volume 87.5 fL (80.0-100.0); Mean Platelet Volume 7.6 fL (7.0-11.0); Mono # (Auto) 0.7 th/mm3 (0.0-0.9); Mono % (Auto) 8.2 % (0.0-8.0); Neut % (Auto) 57.7 % (16.0-70.0); Platelet Count 242 th/mm3 (150-450); Red Cell Distribution Width 13.8 % (11.6-17.2); White Blood Count 8.6 th/mm3 (4.0-11.0)
[2018-08-08 15:50] LABS: Activated Partial Thrombo Time 24.9 sec (24.3-30.1); Prothrombin Time 10.1 sec (9.8-11.6)
[2018-08-08 16:09] LABS: Albumin 3.8 g/dL (3.4-5.0); Aspartate Aminotransferase 25 U/L (15-37); Blood Urea Nitrogen 22 mg/dL (7-18); Creatine Kinase 175 U/L (26-192); Glomerular Filtration Rate 80 mL/min (>89); Glucose,Random 80 mg/dL (74-106)
--- NOTE | 2018-08-08 16:12 | US ---
EXAM DATE: 08/08/2018 4:09 PM EDT AGE/SEX: 68 years / Female INDICATIONS: Bilateral leg swelling. CLINICAL DATA: This is the patient's subsequent encounter. Patient reports that signs and symptoms h ave been present for 2 days and indicates a pain score of 1/10. MEDICAL/SURGICAL HISTORY: Hypertension. Chronic back pain. Diabetes. Herniated disc. Sciatica. Hysterectomy. COMPARISON: No prior exams available for comparison. TECHNIQUE: Venous ultrasound of both lower extremities was performed from the inguinal ligament to t he proximal calf. Real-time, color Doppler and spectral tracing, compression and augmentation techni ques were used. FINDINGS: Right Leg: Normal compression of the deep venous system from the inguinal region to the proximal adela f. No echogenic clot is seen. Normal response of the venous system to augmentation and respiration. Left Leg: Normal compression of the deep venous system from the inguinal region to the proximal calf . No echogenic clot is seen. Normal response of the venous system to augmentation and respiration. Other: None. CONCLUSION: No venous thrombosis is identified within either lower extremity. Electronically signed by: Curry Nix MD 08/08/2018 4:11 PM EDT
[2018-08-08 16:17] LABS: Alanine Aminotransferase 39 U/L (10-53); Alkaline Phosphatase 76 U/L (45-117); Anion Gap 8 meq/L (5-15); Calcium 9.2 mg/dL (8.5-10.1); Carbon Dioxide 26.4 meq/L (21.0-32.0); Chloride 104 meq/L (98-107); Sodium 138 meq/L (136-145); Total Protein 7.5 g/dL (6.4-8.2)
[2018-08-08 16:31] LABS: Creatine Kinase MB 2.8 ng/mL (0.5-3.6)
[2018-08-08 19:21] LABS: Creatine Kinase 155 U/L (26-192)
[2018-08-08 19:34] LABS: Creatine Kinase MB 2.4 ng/mL (0.5-3.6)
[2018-08-08 21:29] LABS: Bilirubin,Urine Negative (Negative); Clarity,Urine Clear (Clear); Color,Urine Yellow (Yellw/Straw); Glucose,Urine (UA) Negative (Negative); Hyaline Casts,Urine 4 /lpf (0-3); Leukocyte Esterase,Urine Negative (Negative); Mucus,Urine Few /lpf (Occasional); Nitrite,Urine Negative (Negative); Specific Gravity,Urine 1.014 (1.002-1.035); Squamous Epithelial Cell,Urine 1 /hpf (0-5)
[2018-08-08 21:49] LABS: Creatine Kinase 149 U/L (26-192)
--- NOTE | 2018-08-09 09:00 | P.HPCA ---
History of Present Illness Primary Care Physician: Lori Flores MD Chief Complaint: Chest pain History of Present Illness: 68-year-old female with history of hypertension, hyperlipidemia, and diabetes presents the emergency room for further evaluation of worsening intermittent chest pain beginning 5-6 days ago. Discomfort originally short lived and extremely mild therefore didn't pay much attention to discomfort. Yesterday morning felt fatigue so decided to go back to bed. While laying in bed around 10 am chest discomfort returned, somewhat more intense. Location left anterior chest. Characterized as tightness and pressure. Radiation to neck/throat. Associated symptoms included headache and dyspnea. Denied nausea, vomiting, or diaphoresis. Duration 15-30 minutes, subsiding for approx 1 hour before returning for approx 30 minutes. Called her daughter. Daughter took her to PCP were an EKG was completed, then directed her to ER for further evaluation. Endorses similar pain in the past over the last few months. Around 4am this morning reports left anterior chest discomfort changed characteristic to a " deep inside needle pain." No radiation. No associating symptoms. Hurts to take a deep breath and easily reproduced with palpation. Duration constant. No precipitating or relieving factors. Reports history of cardiac catheterization a few years ago, believes report to be completely normal. No recent injury or illness. Past cardiac testing 04/12/17 Lexiscan-unremarkable 07/27/15 Cardiac catheterization (Dr. Crisostomo) Conclusions: 1. Widely patent coronary arteries. 2. Preserved left ventricular systolic function. 07/24/15 Lexiscan-small area of perfusion defect at stress in the septal wall. Normal ejection function and wall motion. Social history Known hypertension, hyperlipidemia, and diabetes. Reports last hemoglobin A1c 12%-2 months ago. Reports intolerance to statins. Lifelong non-smoker. No alcohol or recreational drug use. Lives with her daughter. Reports an active lifestyle. Assisting caring for 16- year-old autistic grandson. Family history Noncontributory for early onset cardiovascular disease. X3 Sisters diagnosed with lupus, all from complications from lupus. One sister due to complications chronic kidney disease and diabetes. - Diagnosis (1) Atypical chest pain (2) History of diabetes mellitus, type II (3) History of hypertension (4) History of gastroesophageal reflux (GERD) Review of Systems All other systems reviewed negative except as stated in HPI PMFSH - History History Provided By: Patient - Medical History Medical History: Medical History (Last Updated 08/09/18 @ 13:46 by JUDY Wade) Chronic back pain Diabetes HTN (hypertension) Herniated disc History of hysterectomy Left bundle branch block Sciatica - Surgical History Surgical History: Surgical History (Last Updated 08/09/18 @ 09:36 by JUDY Wade) History of bilateral oophorectomy History of tonsillectomy - Family History Family History: Family History (Last Updated 08/09/18 @ 13:47 by JUDY Wade) Sister Lupus (systemic lupus erythematosus) Sister Lupus (systemic lupus erythematosus) Sister Lupus (systemic lupus erythematosus) Sister Diabetes mellitus type 2 with complications Mother Diabetes mellitus type 2 with complications CVA (cerebral vascular accident) Father CVA (cerebral vascular accident) - Tobacco History Second Hand Smoke Exposure: No Tobacco Use In Past 30 Days: No Smoking Status: Never smoker - Alcohol History How Often Do You Have a Drink Containing Alcohol: Never - Substance Use History Substance History: No History of Abuse - Travel History History of Recent Travel: No Recent Travel in the [place] Within the Last 8 Weeks: No Recent Travel Out of the Country Within the Last 8 Weeks: No - Immunization History Tetanus Immunization: Unsure Medications and Allergies Active Medications: Active Medications Sodium Chloride (Ns Flush) 2 ml IV.FLUSH UNSCH PRN PRN Reason: FLUSH AFTER USING IV ACCESS Sodium Chloride (Ns Flush) 2 ml IV.FLUSH BID JENNA Last Admin: 08/08/18 21:26 Dose: 2 ml Sodium Chloride (Ns Flush) 2 ml IV.FLUSH PRN PRN PRN Reason: FLUSH AFTER USING IV ACCESS Allergies Allergy/AdvReac Type Severity Reaction Status Date / Time penicillin G Allergy Severe HIVES/THROAT Verified 08/08/18 14:35 SWELLING latex Allergy Intermediate Hives Verified 08/08/18 14:35 metformin Allergy Intermediate GI UPSET Verified 08/08/18 14:35 INSULIN Allergy Intermediate Rash Uncoded 08/08/18 14:35 no narcotics lowers b/p too AdvReac Severe b/p drops Uncoded 08/08/18 14:35 much with all narcotics Home Medications Medication Instructions Recorded Confirmed Type amlodipine 10 mg PO DAILY 04/25/18 08/08/18 History duloxetine 1 cap PO DAILY 04/25/18 08/08/18 History glimepiride 4 mg PO QAM 04/25/18 08/08/18 History lisinopril 20 mg PO DAILY 04/25/18 08/08/18 History meloxicam 15 mg PO DAILY 04/25/18 08/08/18 History omeprazole-sodium bicarbonate 1 cap PO DAILY 04/25/18 08/08/18 History tramadol 50 mg PO Q8H PRN 04/25/18 08/08/18 History Exam Vital signs: Vital Signs 08/08/18 14:31 08/08/18 14:45 08/08/18 14:55 Temperature 97.7 F Pulse Rate 68 78 Respiratory Rate 18 18 Blood Pressure 145/87 H 165/80 H Pulse Oximetry 96 96 98 08/08/18 16:15 08/08/18 20:00 08/09/18 00:00 Temperature 97.8 F 98.5 F Pulse Rate 72 67 71 Respiratory Rate 18 14 16 Blood Pressure 131/71 143/72 H 117/60 Pulse Oximetry 94 L 94 L 94 L 08/09/18 04:00 08/09/18 07:47 08/09/18 08:00 Temperature 98.1 F 98.6 F Pulse Rate 81 72 84 Respiratory Rate 14 18 Blood Pressure 142/65 H 167/78 H Pulse Oximetry 95 98 Intake & Output 08/08/18 08/09/18 08/09/18 18:59 06:59 18:59 Weight 78.018 kg Other: # Voids 1 Date of Last Bowel Movement 08/07/18 Narrative: GENERAL: Alert WN, WD, NAD, pleasant, obese, elderly female HEAD: NC, AT EYES: Sclera clear, conjunctiva without injection, pupils equal and round ENT: Mucous membranes pink and moist NECK: Supple, no masses, trachea midline CV: RRR, without murmur, rub, gallop, no JVD, S1-S2. Left anterior chest wall pain easily reproduced with palpation. RESP: Clear lungs throughout bilateral, no crackles, wheeze, rhonchi, symmetrical chest rise, nonlabored, able to speak in full sentences ABD: Soft, NT, ND, no masses, positive bowel tones EXT: Pulses +2x4, no dependent edema MS: Normal tone x4 extremities, nontender, no obvious deformities, full range of motion NEURO: CN II through CN XII grossly intact, motor strength 5/5 PSYCH: A+O x3, pleasant affect, appropriate speech, mood, insight and judgment SKIN: Normal turgor, normal texture, no lesions, no rashes, brisk cap refill, even hair distribution Results 08/08/18 15:11 08/08/18 15:11 Cardiac Enzymes 08/08/18 08/08/18 08/08/18 Range/Units 15:11 15:11 15:11 AST Cancelled 25 CK-MB (CK-2) 2.8 (0.5-3.6) ng/mL Troponin I Cancelled Less than 0.02 L B-Natriuretic Peptide 18 (0-100) pg/mL 08/08/18 08/08/18 Range/Units 18:18 21:05 AST CK-MB (CK-2) 2.4 (0.5-3.6) ng/mL Troponin I Less than 0.02 L Less than 0.02 L B-Natriuretic Peptide (0-100) pg/mL Coagulation 08/08/18 08/08/18 Range/Units 15:11 15:11 PT 10.1 (9.8-11.6) sec APTT 24.9 (24.3-30.1) sec B-Natriuretic Peptide 18 (0-100) pg/mL CBC 08/08/18 Range/Units 15:11 WBC 8.6 (4.0-11.0) th/mm3 RBC 4.50 (4.00-5.30) mil/mm3 Hgb 13.8 (11.6-15.3) gm/dL Hct 39.4 (35.0-46.0) % Plt Count 242 (150-450) th/mm3 Neut # (Auto) 5.0 (1.8-7.7) th/mm3 Lymph # (Auto) 2.7 (1.0-4.8) th/mm3 [place] # (Auto) 0.7 (0.0-0.9) th/mm3 Eos # (Auto) 0.1 (0.0-0.4) th/mm3 Baso # (Auto) 0.1 (0.0-0.2) th/mm3 Comprehensive Metabolic Panel 08/08/18 08/08/18 Range/Units 15:11 15:11 Sodium Cancelled 138 Potassium Cancelled 4.0 Chloride Cancelled 104 Carbon Dioxide Cancelled 26.4 BUN Cancelled 22 H Creatinine Cancelled 0.72 Calcium Cancelled 9.2 AST Cancelled 25 ALT Cancelled 39 Alkaline Phosphatase Cancelled 76 Total Protein Cancelled 7.5 Albumin Cancelled 3.8 Intake and Output 08/08/18 08/09/18 08/09/18 22:59 06:59 14:59 Other: # Voids 1 Date of Last Bowel Movement 08/07/18 - Imaging and Cardiology Imaging: Impressions Chest X-Ray 08/08/18 14:36 CONCLUSION: Negative chest for acute disease Mild compensated cardiomegaly, stable from comparison study. Venous Doppler Study 08/08/18 15:10 CONCLUSION: No venous thrombosis is identified within either lower extremity. EKG interpretations - EKG EKG results cardiology: sinus rhythm (left bundle branch block (not new- compared to past EKGs available)) Caprini VTE Risk Assessment Caprini VTE Risk Assessment: Moderate/High Risk (score >= 2) Caprini Risk Assessment Model: Point Value = 1 Point Value = 2 Point Value = 3 Point Value = 5 Age 41-60 Minor surgery BMI > 25 kg/m2 Swollen legs Varicose veins or History of unexplained or recurrent spontaneous Oral contraceptives or hormone replacement Sepsis (< 1 month) Serious lung disease, including pneumonia (< 1 month) Abnormal pulmonary function Acute myocardial infarction Congestive heart failure (< 1 month) History of inflammatory bowel disease Medical patient at bed rest Age 61-74 Arthroscopic surgery Major open surgery (> 45 min) Laparoscopic surgery (> 45 min) Malignancy Confined to bed (> 72 hours) Immobilizing plaster cast Central venous access Age >= 75 History of VTE Family history of VTE Factor V Leiden Prothrombin [id number] Lupus anticoagulant Anticardiolipin antibodies Elevated serum homocysteine Heparin-induced thrombocytopenia Other congenital or acquired thrombophilia Stroke (< 1 month) Elective arthroplasty Hip, pelvis, or leg fracture Acute spinal cord injury (< 1 month) Prophylaxis Regimen: Total Risk Factor Score Risk Level Prophylaxis Regimen 0-1 Low Early ambulation 2 Moderate Order ONE of the following: *Sequential Compression Device (SCD) *Heparin 5000 units SQ BID 3-4 Higher Order ONE of the following medications: *Heparin 5000 units SQ TID *Enoxaparin/Lovenox 40 mg SQ daily (WT < 150 kg, CrCl > 30 mL/min) *Enoxaparin/Lovenox 30 mg SQ daily (WT < 150 kg, CrCl > 10-29 mL/min) *Enoxaparin/Lovenox 30 mg SQ BID (WT < 150 kg, CrCl > 30 mL/min) AND/OR *Sequential Compression Device (SCD) 5 or more Highest Order ONE of the following medications: *Heparin 5000 units SQ TID (Preferred with Epidurals) *Enoxaparin/Lovenox 40 mg SQ daily (WT < 150 kg, CrCl > 30 mL/min) *Enoxaparin/Lovenox 30 mg SQ daily (WT < 150 kg, CrCl > 10-29 mL/min) *Enoxaparin/Lovenox 30 mg SQ BID (WT < 150 kg, CrCl > 30 mL/min) AND *Sequential Compression Device (SCD) Assessment and Plan - Assessment (1) Atypical chest pain Code(s): R07.89 - Other chest pain Status: Acute Plan: Admitted to chest pain center. Monitor on telemetry overnight. ACS ruled out with 3 sets of EKGs and cardiac enzymes. Patient has known left bundle branch block. Recent normal Lexiscan April 2017. Cardiac catheterization July 2015 showed widely patent coronary arteries. Will be seen and evaluated by Dr. Kiran Gaston. Discussed no further cardiac testing will be required due to recent testing as stated above. Discomfort easily reproducible, Toradol 30 mg IV x1 dose. (2) History of diabetes mellitus, type II Code(s): Z86.39 - Personal history of other endocrine, nutritional and metabolic disease Status: Chronic Plan: Continue glimepiride. Reports being allergic to insulin injections, apparently develops a rash. Due to this reason, will not order SSI coverage. Discussed importance of statin therapy with diabetes diagnoses. Reports being intolerance to statins therefore does not take. Instructed to follow up with PCP. (3) History of hypertension Code(s): Z86.79 - Personal history of other diseases of the circulatory system Status: Chronic Plan: Continue amlodipine and lisinopril. Supported her efforts on dietary changes and weight loss. (4) History of gastroesophageal reflux (GERD) Code(s): Z87.19 - Personal history of other diseases of the digestive system Status: Chronic Plan: Continue omeprazole. H&P: Quality - VTE Deep Vein Thrombosis/Pulmonary Embolism Present on Admission: No
[2018-08-09] MEDS ORDERED: Ketorolac Inj 30 MG/ML (IVP) Vial IV.PUSH ONE (09:24)
[2018-08-09] MEDS ORDERED: [UNRECOGNIZED DRUG - OTHER] PO SCH (09:30)
[2018-08-09] MEDS ORDERED: Lisinopril 20 MG Tablet PO SCH (09:30)
[2018-08-09] MEDS ORDERED: amLODIPine 10 MG Tablet PO SCH (09:45)
[2018-08-09] MEDS ORDERED: Glimepiride 4 MG Tablet PO SCH (11:00)
--- NOTE | 2018-08-09 16:24 | ECG ---
Date Performed: 08/08/2018 Time Performed: 14:43:22 PTAGE: 68 years EKG: Sinus rhythm WITH SINUS ARRHYTHMIA MARKED LEFT AXIS DEVIATION LEFT BUNDLE BRANCH BLOCK ABNORMAL ECG PREVIOUS TRACING : 07/14/17 @ 21.50 Since the previous tracing, no significant change noted DOCTOR: Sotero Marin Interpretating Date/Time 08/09/2018 16:24:10
--- NOTE | 2018-08-09 16:25 | ECG ---
Date Performed: 08/08/2018 Time Performed: 18:05:58 PTAGE: 68 years EKG: Sinus rhythm WITH OCCASIONAL SUPRAVENTRICULAR PREMATURE COMPLEXES MARKED LEFT AXIS DEVIATION LEFT BUNDLE BRANCH B LOCK ABNORMAL ECG PREVIOUS TRACING 08/08/2018 @ 14.43 Since the previous tracing, no significant change noted DOCTOR: Sotero Marin Interpretating Date/Time 08/09/2018 16:24:43
--- NOTE | 2018-08-09 16:25 | ECG ---
Date Performed: 08/08/2018 Time Performed: 20:41:47 PTAGE: 68 years EKG: Sinus rhythm WITH MARKED SINUS ARRHYTHMIA MARKED LEFT AXIS DEVIATION LEFT BUNDLE BRANCH BLOCK ABNORMAL ECG PREVIOUS TRACING : 08/08/2018 14.43 Since the previous tracing, no significant change noted DOCTOR: Sotero Marin Interpretating Date/Time 08/09/2018 16:25:00
== END 2018-08-09 12:44 | disposition home or self-care (01) ==
LOC: NEDA 14:28 → NEPC 14:28 → NEPGCP 19:37
PROVIDERS: ADMIT Internal Medicine Cardiovascular Disease; ATTEND Internal Medicine Cardiovascular Disease

== ENCOUNTER 2018-09-14 13:32 | Inpatient (IN) ==
--- NOTE | 2018-09-14 13:49 | CT ---
EXAM DATE: 09/14/2018 1:45 PM EST AGE/SEX: 68 years / Female INDICATIONS: Stroke alert. Slurred speech, right facial droop, right sided weakness and unequal pupi ls. Aphasia. CLINICAL DATA: This is the patient's initial encounter. Patient reports that signs and symptoms have been present for 1 day and indicates a pain score of 0/10. MEDICAL/SURGICAL HISTORY: Non-responsive. Non-responsive. RADIATION DOSE: 56.28 CTDI (mGy) COMPARISON: [facility], CT BRAIN W/O CONTRAST, 04/11/2017. . TECHNIQUE: CT of the head without contrast. Using automated exposure control and adjustment of the mA and/or kV according to patient size, radiation dose was kept as low as reasonably achievable to ob tain optimal diagnostic quality images. DICOM format image data is available electronically for revi ew and comparison. FINDINGS: Cerebrum: The ventricles are normal for age. No evidence of midline shift, mass lesion, hemorrhage or acute infarction. No extraaxial fluid collections are seen. Posterior Fossa: The cerebellum and brainstem are intact. The 4th ventricle is midline. The cerebe llopontine angle is unremarkable. Extracranial: The visualized portion of the orbits is intact. Skull: The calvaria is intact. No evidence of skull fracture. CONCLUSION: 1. Negative for acute process Report was called by [ Dr. Kiran] Electronically signed by: Ellis Kiran MD 09/14/2018 1:47 PM EST
[2018-09-14 13:50] LABS: Chloride 105 meq/L (98-107); Sodium 138 meq/L (136-145)
[2018-09-14 13:53] LABS: Anion Gap 8 meq/L (5-15); Baso # (Auto) 0.1 th/mm3 (0.0-0.2); Baso % (Auto) 0.9 % (0.0-2.0); Blood Urea Nitrogen 20 mg/dL (7-18); Calcium 8.9 mg/dL (8.5-10.1); Carbon Dioxide 24.9 meq/L (21.0-32.0); Eos # (Auto) 0.1 th/mm3 (0.0-0.4); Eos % (Auto) 1.6 % (0.0-4.0); Glucose,Random 128 mg/dL (74-106); Hematocrit 44.4 % (35.0-46.0); Hemoglobin 14.4 gm/dL (11.6-15.3); Lymph # (Auto) 3.4 th/mm3 (1.0-4.8); Lymph % (Auto) 42.3 % (9.0-44.0); Mean Corpuscular HGB Conc 32.5 % (32.0-36.0); Mean Corpuscular Hemoglobin 27.8 pg (27.0-34.0); Mean Corpuscular Volume 85.6 fL (80.0-100.0); Mean Platelet Volume 7.9 fL (7.0-11.0); Mono # (Auto) 0.7 th/mm3 (0.0-0.9); Mono % (Auto) 9.3 % (0.0-8.0); Neut # (Auto) 3.6 th/mm3 (1.8-7.7); Neut % (Auto) 45.9 % (16.0-70.0); Platelet Count 297 th/mm3 (150-450); Red Blood Count 5.19 mil/mm3 (4.00-5.30); Red Cell Distribution Width 12.7 % (11.6-17.2); White Blood Count 7.9 th/mm3 (4.0-11.0)
[2018-09-14 13:56] LABS: Activated Partial Thrombo Time 27.6 sec (23.4-31.7); Prothrombin Time 10.6 sec (9.8-11.6)
[2018-09-14 13:57] LABS: Glomerular Filtration Rate 71 mL/min (>89)
[2018-09-14 14:01] LABS: Beta HCG,Quantitative 4 mIU/mL (0-5)
[2018-09-14] MEDS ORDERED: niCARdipine Inj 25 MG in Sodium Chlor 0.9% Inj 240 ML IV.CONT PRN (14:06)
[2018-09-14 14:07] LABS: Creatine Kinase 93 U/L (26-192)
--- NOTE | 2018-09-14 14:08 | ED ---
HPI General Chief complaint: Stroke Alert Stated complaint: stroke alert/evac Time Seen by Provider: 09/14/18 13:34 Source: EMS Mode of arrival: EMS Limitations: physical limitation History of Present Illness HPI narrative: This 68-year-old female is brought as a stroke alert. Her daughter reports that she called her at 12 when she had an onset of a headache and dizziness. Paramedics were called. They found the patient with right facial weakness and some right-sided weakness. According to paramedics the patient stopped talking to them while she was en route to the hospital. Patient has a history of hypertension. Her blood pressure in the field was 200/ 120. The patient is not able to give any history at this time. Related Data Home Medications Medication Instructions Recorded Confirmed amlodipine 10 mg PO DAILY 04/25/18 08/08/18 duloxetine 1 cap PO DAILY 04/25/18 09/14/18 glimepiride 4 mg PO QAM 04/25/18 09/14/18 lisinopril 20 mg PO DAILY 04/25/18 09/14/18 meloxicam 15 mg PO DAILY 04/25/18 09/14/18 omeprazole-sodium bicarbonate 1 cap PO DAILY 04/25/18 09/14/18 tramadol 50 mg PO Q8H PRN 04/25/18 09/14/18 gabapentin 09/14/18 gabapentin 1 tab PO HS 09/14/18 09/14/18 Allergies Allergy/AdvReac Type Severity Reaction Status Date / Time penicillin G Allergy Severe HIVES/THROAT Verified 09/14/18 14:38 SWELLING latex Allergy Intermediate Hives Verified 09/14/18 14:38 metformin Allergy Intermediate GI UPSET Verified 09/14/18 14:38 INSULIN Allergy Intermediate Rash Uncoded 08/08/18 14:35 no narcotics lowers b/p too AdvReac Severe b/p drops Uncoded 08/08/18 14:35 much with all narcotics Review of Systems ROS Unobtainable ROS Unobtainable: unobtainable due to mental condition PMFSH Medical History Medical History Chronic back pain (Acute) Diabetes (Acute) HTN (hypertension) (Acute) Herniated disc (Acute) History of hysterectomy (Acute) Left bundle branch block (Acute) Sciatica (Acute) Surgical History Surgical History History of bilateral oophorectomy (Acute) History of tonsillectomy (Acute) Family History Family History Sister Lupus (systemic lupus erythematosus) Sister Lupus (systemic lupus erythematosus) Sister Lupus (systemic lupus erythematosus) Sister Diabetes mellitus type 2 with complications Mother Diabetes mellitus type 2 with complications CVA (cerebral vascular accident) Father CVA (cerebral vascular accident) Social History Social History Substance History: No History of Abuse Second Hand Smoke Exposure: No Smoking Status: Never smoker How Often Do You Have a Drink Containing Alcohol: Never Hx Recent Travel: No Recent Travel in [facility] within the Last 8 Weeks: No Recent Out of Country Travel within the Last 8 Weeks: No Exam Narrative Exam Narrative: GENERAL: Well-developed female SKIN: Focused skin assessment warm/dry. HEAD: Atraumatic. Normocephalic. EYES: Pupils equal and round. No scleral icterus. No injection or drainage. ENT: No nasal bleeding or discharge. Mucous membranes pink and moist. NECK: Trachea midline. No JVD. CARDIOVASCULAR: Regular rate and rhythm. No murmur appreciated. RESPIRATORY: No accessory muscle use. Clear to auscultation. Breath sounds equal bilaterally. GASTROINTESTINAL: Abdomen soft, non-tender, nondistended. Hepatic and splenic margins not palpable. MUSCULOSKELETAL: No obvious deformities. No clubbing. No cyanosis. No edema. NEUROLOGICAL: The patient has her eyes open and will follow some simple commands. She does not talk at all. She right facial weakness. She is unable to lift her right arm off the stretcher. She is unable to lift her right leg off the stretcher. Sensation also appears diminished on the right side. PSYCHIATRIC: Appropriate mood and affect; insight and judgment normal. Course Initial Documented Vital Signs Temperature 97.8 F 09/14/18 13:35 Pulse Rate 66 09/14/18 13:35 Respiratory Rate 14 09/14/18 13:35 Blood Pressure 172/90 H 09/14/18 13:35 Pulse Oximetry 99 09/14/18 13:35 Last Documented Vital Signs Temperature 97.8 F 09/14/18 13:35 Pulse Rate 66 09/14/18 13:35 Respiratory Rate 14 09/14/18 13:35 Blood Pressure 172/90 H 09/14/18 13:35 Pulse Oximetry 98 09/14/18 14:07 Quality Measure Queries Stroke Last date observed well: 09/14/18 Last time observed well: 13:00 Medical Decision Making MDM Narrative Medical decision making narrative: Patient was declared a stroke alert prehospital. She was taken immediately to CT scan. The CT scan is read as negative. Repeat exam confirms aphascia and right-sided hemiparesis. NIH stroke scale of about 21. TPA was discussed with her daughters who are here and they are agreeable TPA is being administered. The benefits and potential risks were discussed with the daughters the patient's blood pressure has come down to 175/80 without any treatment. TPA has been administered. The patient will be admitted to the intensive surgical care unit. Medical Screen Exam Complete: Yes Emergency Medical Condition: Yes Lab Data Result diagrams: 09/14/18 13:15 09/14/18 13:15 Lab Results 09/14/18 09/14/18 09/14/18 Range/Units 13:15 13:15 13:15 CBC w Diff Auto diff final WBC 7.9 (4.0-11.0) th/mm3 RBC 5.19 (4.00-5.30) mil/mm3 Hgb 14.4 (11.6-15.3) gm/dL Hct 44.4 (35.0-46.0) % MCV 85.6 (80.0-100.0) fL MCH 27.8 (27.0-34.0) pg MCHC 32.5 (32.0-36.0) % RDW 12.7 (11.6-17.2) % Plt Count 297 (150-450) th/mm3 MPV 7.9 (7.0-11.0) fL Neut % (Auto) 45.9 (16.0-70.0) % Lymph % (Auto) 42.3 (9.0-44.0) % Weston % (Auto) 9.3 H (0.0-8.0) % Eos % (Auto) 1.6 (0.0-4.0) % Baso % (Auto) 0.9 (0.0-2.0) % Neut # (Auto) 3.6 (1.8-7.7) th/mm3 Lymph # (Auto) 3.4 (1.0-4.8) th/mm3 Weston # (Auto) 0.7 (0.0-0.9) th/mm3 Eos # (Auto) 0.1 (0.0-0.4) th/mm3 Baso # (Auto) 0.1 (0.0-0.2) th/mm3 WBC Differential . Differential Comment . PT 10.6 (9.8-11.6) sec INR 1.0 Ratio APTT 27.6 (23.4-31.7) sec Fibrinogen 356 (227-377) mg/dL Sodium 138 (136-145) meq/L Potassium 4.0 (3.5-5.1) meq/L Chloride 105 (98-107) meq/L Carbon Dioxide 24.9 (21.0-32.0) meq/L Anion Gap 8 (5-15) meq/L BUN 20 H (7-18) mg/dL Creatinine 0.80 (0.50-1.00) mg/dL Estimated GFR 71 L (>89) mL/min Random Glucose 128 H (74-106) mg/dL Calcium 8.9 (8.5-10.1) mg/dL Total Creatine Kinase 93 (26-192) U/L Troponin I Less than 0.02 L (0.02-0.05) ng/mL Beta HCG, Quant 4 (0-5) mIU/mL Imaging Data Radiologist's impression: Chest X-Ray 09/14/18 13:34 CONCLUSION: Stable linear scar at the left lung base. Otherwise, no acute cardiopulmonary abnormality is identified. Head CT 09/14/18 13:34 CONCLUSION: 1. Negative for acute process Report was called by [ Dr. Kiran] Head CTA 09/14/18 13:34 CONCLUSION: 1. Negative for major branch vessel occlusion. 2. Findings were discussed with Dr. González Shelley Neck CTA 09/14/18 13:34 CONCLUSION: 1. No hemodynamically significant carotid or vertebral artery stenosis. Discharge Plan Discharge Disposition Patient Disposition: Transfer To [facility] Discharge Condition Condition: Critical Discharge Order Discharge Orders: ED Use Only Admit Order (Routine); Ordered 09/14/18 Ordered By: Rivera Horan Discharge Details Diagnosis: CVA (cerebral vascular accident) Physicians Team ED Provider: Rivera Horan Primary Care Provider: Lori Flores Attending Provider: Jose Mike Other Providers: Cali Shelley ED Status: Admitted Patient
--- NOTE | 2018-09-14 14:10 | CT ---
EXAM DATE: 09/14/2018 2:04 PM EST AGE/SEX: 68 years / Female INDICATIONS: Stoke alert. Slurred speech, right facial droop, right sided weakness, unequal pupils, and aphasia. CLINICAL DATA: This is the patient's initial encounter. Patient reports that signs and symptoms have been present for 1 day and indicates a pain score of Nonresponsive. MEDICAL/SURGICAL HISTORY: Non-responsive. Non-responsive. RADIATION DOSE: 42.18 CTDI (mGy) ; Combined studies COMPARISON: [facility], CT HEAD W/O CONTRAST, 09/14/2018. . TECHNIQUE: Volumetric scanning was performed using a multi-row detector CT scanner during bolus infu dameon of 100 ml Visipaque 320 (iodixanol) nonionic water-soluble contrast as a cumulative dose for mu ltiple exams. The data was post processed with a variety of visualization algorithms including full volume maximum intensity projection, multi-planar sliding thin slab reformation, curved planar refor mation, and surface rendering techniques. Using automated exposure control and adjustment of the mA and/or kV according to patient size, radiation dose was kept as low as reasonably achievable to obtai n optimal diagnostic quality images. DICOM format image data is available electronically for review and comparison. FINDINGS: There is good visualization of the intracranial vessels. There is no major branch vessel occlusion ho wever the distal MCA branches on the left especially the second and third divisions do not seen to be as well visualized as on the right. I can't see a focal embolus however embolic disease these distal vessels is suspected. CONCLUSION: 1. Negative for major branch vessel occlusion. 2. Findings were discussed with Dr. González Shelley Electronically signed by: Ellis Kiran MD 09/14/2018 2:08 PM EST
[2018-09-14] MEDS ORDERED: Alteplase Bolus 9 MG/9 ML Syringe IV.PUSH ONE (14:11)
[2018-09-14] MEDS ORDERED: ALTEPLASE DRIP IV.SIG ONE (14:11)
--- NOTE | 2018-09-14 14:15 | XR ---
EXAM DATE: 09/14/2018 2:08 PM EST AGE/SEX: 68 years / Female INDICATIONS: Stroke alert. CLINICAL DATA: This is the patient's initial encounter. Patient reports that signs and symptoms have been present for 1 day and indicates a pain score of Nonresponsive. MEDICAL/SURGICAL HISTORY: Diabetes. Hypertension. Left bundle branch block. Hysterectomy. To nsillectomy. COMPARISON: [facility], CHEST 1V SINGLE AP, 08/08/2018. . FINDINGS: Portable AP view of the chest demonstrates a normal size cardiac silhouette. EKG lines overlie the pa tient. Lungs are mildly underinflated. Stable linear scar is identified at the left lung base. No eff usion, consolidation, or pneumothorax is present. Bones and soft tissues demonstrate no acute finding . There are degenerative changes of the thoracic spine. CONCLUSION: Stable linear scar at the left lung base. Otherwise, no acute cardiopulmonary abnormality is identifi ed. Electronically signed by: Curry Nix MD 09/14/2018 2:13 PM EST
--- NOTE | 2018-09-14 14:38 | CT ---
EXAM DATE: 09/14/2018 2:15 PM EST AGE/SEX: 68 years / Female INDICATIONS: Stoke alert. Slurred speech, right facial droop, right sided weakness, unequal pupils, and aphasia. CLINICAL DATA: This is the patient's initial encounter. Patient reports that signs and symptoms have been present for 1 day and indicates a pain score of Nonresponsive. MEDICAL/SURGICAL HISTORY: Non-responsive. Non-responsive. RADIATION DOSE: 42.18 CTDI (mGy) ; Combined studies COMPARISON: [facility], MR CERVICAL SPINE W/O CONTRAST, 08/15/2017. . TECHNIQUE: Volumetric scanning was performed using a multirow detector CT scanner during bolus infus ion of 100 ml Visipaque 320 (iodixanol) nonionic water-soluble contrast as a cumulative dose for mul tiple exams. The data was postprocessed with a variety of visualization algorithms including full-v olume maximum intensity projection, multiplanar sliding thin-slab reformation, curved-planar reformat ion, and surface-rendering techniques. Using automated exposure control and adjustment of the mA and /or kV according to patient size, radiation dose was kept as low as reasonably achievable to obtain o ptimal diagnostic quality images. DICOM format image data is available electronically for review and comparison. Percent stenosis is calculated using the diameter of the stenotic region over the diameter of the nor mal distal internal carotid artery. FINDINGS: Aortic Arch: There is a three-vessel origin of the great vessels from the aorta. No evidence of ost ial narrowing Right Carotid: The common carotid artery is intact. The carotid bulb has a normal configuration wit hout ulceration or narrowing. The internal carotid artery lumen is smooth without stenosis. The ext ernal carotid artery is intact. Left Carotid: The common carotid artery is intact. The carotid bulb has a normal configuration with out ulceration or narrowing. The internal carotid artery lumen is smooth without stenosis. The exte rnal carotid artery is intact. Vertebrals: The vertebral arteries have a symmetric diameter. No stenotic lesions are seen. General Findings: Mild groundglass opacities at the lung apices Thyroid is unremarkable by CT. No sig nificant adenopathy. CONCLUSION: 1. No hemodynamically significant carotid or vertebral artery stenosis. Electronically signed by: Davion Schreiber MD 09/14/2018 2:36 PM EST
[2018-09-14] MEDS: Sod Chloride 0.9% Inj 1,000 ML IV.CONT SCH (14:47)
[2018-09-14] MEDS ORDERED: Labetalol HCl Inj 100 MG/20 ML Vial IV.PUSH PRN (16:03)
[2018-09-14] MEDS ORDERED: Dextrose 50% in Water 50 ML Vial IV.PUSH PRN (16:03)
--- NOTE | 2018-09-14 16:14 | MB ---
cc: Cali Shelley MD, PhD DATE: 09/14/2018 REASON FOR CONSULTATION: Stroke alert. HISTORY OF PRESENT ILLNESS: Ms. Anna is a 68-year-old female who was in her usual state of health this morning. Her daughter called her at 12 noon today when the patient reported onset of a headache and dizziness. Her daughter called the paramedics. When they arrived at the scene, she was found to have right facial weakness as well as right-sided weakness involving the arm and leg and difficulty with speaking with decreased level of consciousness. In the field, her pressure was 200/120. She was brought into the ER as a stroke alert. PAST MEDICAL HISTORY: There is a history of diabetes, hypertension, hysterectomy, left bundle branch block, sciatica. HOME MEDICATIONS: 1. Amlodipine 10 mg daily. 2. Duloxetine 1 daily. 3. Glimepiride 4 mg daily. 4. Lisinopril 20 mg daily. 5. Meloxicam 15 mg daily. 6. Omeprazole 1 daily. 7. Tramadol as needed for pain. 8. Gabapentin at bedtime. 9. She does not take any anticoagulation. ALLERGIES: PENICILLIN, LATEX, METFORMIN, INSULIN AND NARCOTICS, WHICH CAUSED HYPOTENSION. NEUROLOGIC EXAMINATION: This is conducted through the tele-neurology system. VITAL SIGNS: Blood pressure 172/90, which subsequently came down to about 170/80 spontaneously. She was in sinus rhythm. Pulse 66. HIGHER CORTICAL FUNCTION: The patient is lethargic, but follows commands. There is no speech output. This is consistent with an expressive aphasia, but she does follow commands. There was a right facial droop. She is weak on the right side. She was able to lift the left arm up for at least 10 seconds. She had difficulty holding the right arm up for even a second. She had difficulty holding the right leg up, but she could move the left leg briskly, raising it up with good strength. LABORATORY DATA: The white count 7900, hemoglobin 14.4, hematocrit 44%, platelet count 297,000. PT 10.6, INR 1, aPTT 27.6. Sodium 138, potassium is 4, chloride 105, CO2 is 24.9. The BUN is 20, creatinine 0.8, GFR 71, glucose 128. A CT of the brain is negative for any acute process. No hemorrhage is identified. CT angiogram of the neck: No hemodynamically significant stenosis is seen in the carotid arteries or vertebral arteries. CT angiogram of the brain: There is no evidence for any major branch vessel occlusion. The left distal MCA branches were not as well visualized as they were on the right, possibly due to small emboli. NIH stroke scale is calculated as a 14. 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 The patient is within the timeframe for intravenous tissue plasminogen activator. There are no contraindications. Her blood pressure did return to normal parameters spontaneously. I would recommend continued proceeding then with intravenous tissue plasminogen activator in this case per protocol with no anticoagulants for 24 hours following the tissue plasminogen activator. I would recommend transfer to the [facility] for close neurologic checks following tissue plasminogen activator as well as 24-hour CT scan to be done 24 hours after tissue plasminogen activator is administered. There was no evidence for any large vessel occlusion on the CT angiogram, so she is not a candidate for interventional therapy. We will evaluate her further as well with echocardiogram, lipid panel, as well as MRI of the brain. Thank you for asking me to see this patient in consult. Cali Shelley MD, PhD NINFA/[email or web address] , 03:46 PM , 03:55 PM
[2018-09-14] MEDS: Insulin NovoLOG Aspart Correctional Sugar Inj SQ SCH (17:32)
--- NOTE | 2018-09-14 19:45 | P.HPCC ---
History of Present Illness Primary Care Physician: Lori Flores MD History of Present Illness: 68-year-old female brought as a stroke alert. Her daughter reports that she called her at 12 when she had an onset of a headache and dizziness. Paramedics were called. They found the patient with right facial weakness and some right- sided weakness. According to paramedics the patient stopped talking to them while she was en route to the hospital. Patient has a history of hypertension. Her blood pressure in the field was 200/120. The patient is not able to give any history at this time. Inpatient Certification: I certify that the inpatient services were ordered in accordance with Medicare regulations governing the order. This includes certification that hospital inpatient services are reasonable and necessary and in the case of services not specified as inpatient-only under 42 CFR 419.22(n), that they are appropriately provided as inpatient services in accordance to with the 2-midnight benchmark under 43 CFR 412.3(e) Estimated Total Length of Stay (Days): 7 Plans for Post Hospital Care: Not yet determined Review of Systems unobtainable due to mental status PMFSH - History History Provided By: Family Member - Medical History Medical History: Medical History (Last Reviewed 09/14/18 @ 14:39 by Windy Bates RN) Chronic back pain Diabetes HTN (hypertension) Herniated disc History of hysterectomy Left bundle branch block Sciatica - Surgical History Surgical History: Surgical History (Last Reviewed 09/14/18 @ 14:39 by Windy Bates RN) History of bilateral oophorectomy History of tonsillectomy - Family History Family History: Family History (Last Reviewed 09/14/18 @ 14:18 by Rivera Horan MD) Sister Lupus (systemic lupus erythematosus) Sister Lupus (systemic lupus erythematosus) Sister Lupus (systemic lupus erythematosus) Sister Diabetes mellitus type 2 with complications Mother Diabetes mellitus type 2 with complications CVA (cerebral vascular accident) Father CVA (cerebral vascular accident) - Tobacco History Second Hand Smoke Exposure: No Smoking Status: Never smoker - Alcohol History How Often Do You Have a Drink Containing Alcohol: Never - Substance Use History Substance History: No History of Abuse - Travel History History of Recent Travel: No Recent Travel in the [place] Within the Last 8 Weeks: No Recent Travel Out of the Country Within the Last 8 Weeks: No - Immunization History Tetanus Immunization: Unable to Assess Hx Influenza Vaccine This Season: No Medications and Allergies Active Medications: Active Medications Dextrose (D50w Vial) 50 ml IV.PUSH UNSCH PRN PRN Reason: PER HYPOGLYCEMIA PROTOCOL Glucagon (Glucagon Inj) 1 mg OTHER UNSCH PRN PRN Reason: for Hypoglycemia Protocol Sodium Chloride (Ns Inj) 1,000 mls @ 70 mls/hr IV.CONT .[id number] COUNTS INCLUDE 234 BEDS AT THE [facility] Last Admin: 09/14/18 14:47 Dose: 70 mls/hr Nicardipine HCl 25 mg/ Sodium (Chloride) 250 mls @ 50 mls/hr IV.CONT TITRATE PRN; Protocol PRN Reason: Per Protocol Insulin Aspart (Novolog Insulin Correctional Sugar Inj) 0 unit SQ Q6HR JENNA; Protocol Last Admin: 09/14/18 17:32 Dose: Not Given Labetalol HCl (Trandate Inj) 10 mg IV.PUSH Q2H PRN PRN Reason: SBP>180, DBP>110 Allergies Allergy/AdvReac Type Severity Reaction Status Date / Time penicillin G Allergy Severe HIVES/THROAT Verified 09/14/18 14:38 SWELLING latex Allergy Intermediate Hives Verified 09/14/18 14:38 metformin Allergy Intermediate GI UPSET Verified 09/14/18 14:38 INSULIN Allergy Intermediate Rash Uncoded 08/08/18 14:35 no narcotics lowers b/p too AdvReac Severe b/p drops Uncoded 08/08/18 14:35 much with all narcotics Home Medications Medication Instructions Recorded Confirmed Type amlodipine 10 mg PO DAILY 04/25/18 08/08/18 History duloxetine 1 cap PO DAILY 04/25/18 09/14/18 History glimepiride 4 mg PO QAM 04/25/18 09/14/18 History lisinopril 20 mg PO DAILY 04/25/18 09/14/18 History meloxicam 15 mg PO DAILY 04/25/18 09/14/18 History omeprazole-sodium bicarbonate 1 cap PO DAILY 04/25/18 09/14/18 History tramadol 50 mg PO Q8H PRN 04/25/18 09/14/18 History gabapentin 09/14/18 History gabapentin 1 tab PO HS 09/14/18 09/14/18 History Results - Labs CBC & Chem 7: 09/14/18 13:15 09/14/18 13:15 Labs: Short CBC 09/14/18 Range/Units 13:15 WBC 7.9 (4.0-11.0) th/mm3 Hgb 14.4 (11.6-15.3) gm/dL Hct 44.4 (35.0-46.0) % Plt Count 297 (150-450) th/mm3 BMP 09/14/18 13:15 Sodium 138 Potassium 4.0 Chloride 105 Carbon Dioxide 24.9 BUN 20 H Creatinine 0.80 Calcium 8.9 Cardiac Enzymes 09/14/18 Range/Units 13:15 Total Creatine Kinase 93 (26-192) U/L Troponin I Less than 0.02 L (0.02-0.05) ng/mL - Imaging Impressions Chest X-Ray 09/14/18 13:34 CONCLUSION: Stable linear scar at the left lung base. Otherwise, no acute cardiopulmonary abnormality is identified. Head CT 09/14/18 13:34 CONCLUSION: 1. Negative for acute process Report was called by [ Dr. Kiran] Head CTA 09/14/18 13:34 CONCLUSION: 1. Negative for major branch vessel occlusion. 2. Findings were discussed with Dr. González Shelley Neck CTA 09/14/18 13:34 CONCLUSION: 1. No hemodynamically significant carotid or vertebral artery stenosis. Exam Vital signs: Vital Signs 09/14/18 13:35 09/14/18 14:06 09/14/18 14:07 Temperature 97.8 F Pulse Rate 66 Respiratory Rate 14 Blood Pressure 172/90 H Pulse Oximetry 100 98 98 09/14/18 16:55 09/14/18 16:56 09/14/18 16:57 Temperature 98.5 F Pulse Rate 57 L Respiratory Rate Blood Pressure 155/72 H 164/77 H Pulse Oximetry 100 100 100 09/14/18 17:00 09/14/18 17:15 09/14/18 17:30 Temperature Pulse Rate 58 L 58 L 68 Respiratory Rate 14 11 L 14 Blood Pressure 151/67 H 164/79 H 150/81 H Pulse Oximetry 100 100 100 09/14/18 17:45 09/14/18 18:00 09/14/18 18:15 Temperature Pulse Rate 60 59 L 61 Respiratory Rate 17 13 16 Blood Pressure 154/74 H 150/71 H 152/69 H Pulse Oximetry 100 100 100 Intake & Output 09/14/18 09/14/18 09/15/18 06:59 18:59 06:59 Intake Total 62.5 / 62.5 Output Total 300 / 300 Balance -237.5 / -237.5 Weight 77.4 kg Intake: IV 62.5 / 62.5 Activase Drip 62.5 MG In Bag/ 62.5 / 62.5 Syringe 1 EACH @ 62.5 mls/hr IV .SIG ONCE ONE Rx#:[id number] Output: Urine 300 / 300 Other: # Bowel Movements 0 Weight On Admission 77 kg - Constitutional mild distress - Routine HEENT Exam Head: Present: normocephalic, atraumatic Eye: Present: EOMI, conjunctivae pink ENT: Present: mucous membranes moist - Routine Neck Exam Present: supple. Absent: JVD, carotid bruit - Routine Respiratory Exam Absent: accessory muscle use, rhonchi, stridor, wheezes - Routine Cardiovascular Exam Present: RRR, S1, S2 - Routine Abdominal Exam Present: soft, normoactive bowel sounds - Routine Extremities Exam Absent: cyanosis, clubbing, edema - Routine Skin Exam Present: intact. Absent: cyanosis, erythema - Routine Neurological Exam Present: alert, moving all extremities right sided weakness Septic Shock Reassessment Septic shock perfusion: reassessment completed Caprini VTE Risk Assessment Caprini VTE Risk Assessment: Moderate/High Risk (score >= 2) Caprini Risk Assessment Model: Point Value = 1 Point Value = 2 Point Value = 3 Point Value = 5 Age 41-60 Minor surgery BMI > 25 kg/m2 Swollen legs Varicose veins or History of unexplained or recurrent spontaneous Oral contraceptives or hormone replacement Sepsis (< 1 month) Serious lung disease, including pneumonia (< 1 month) Abnormal pulmonary function Acute myocardial infarction Congestive heart failure (< 1 month) History of inflammatory bowel disease Medical patient at bed rest Age 61-74 Arthroscopic surgery Major open surgery (> 45 min) Laparoscopic surgery (> 45 min) Malignancy Confined to bed (> 72 hours) Immobilizing plaster cast Central venous access Age >= 75 History of VTE Family history of VTE Factor V Leiden Prothrombin [id number] Lupus anticoagulant Anticardiolipin antibodies Elevated serum homocysteine Heparin-induced thrombocytopenia Other congenital or acquired thrombophilia Stroke (< 1 month) Elective arthroplasty Hip, pelvis, or leg fracture Acute spinal cord injury (< 1 month) Prophylaxis Regimen: Total Risk Factor Score Risk Level Prophylaxis Regimen 0-1 Low Early ambulation 2 Moderate Order ONE of the following: *Sequential Compression Device (SCD) *Heparin 5000 units SQ BID 3-4 Higher Order ONE of the following medications: *Heparin 5000 units SQ TID *Enoxaparin/Lovenox 40 mg SQ daily (WT < 150 kg, CrCl > 30 mL/min) *Enoxaparin/Lovenox 30 mg SQ daily (WT < 150 kg, CrCl > 10-29 mL/min) *Enoxaparin/Lovenox 30 mg SQ BID (WT < 150 kg, CrCl > 30 mL/min) AND/OR *Sequential Compression Device (SCD) 5 or more Highest Order ONE of the following medications: *Heparin 5000 units SQ TID (Preferred with Epidurals) *Enoxaparin/Lovenox 40 mg SQ daily (WT < 150 kg, CrCl > 30 mL/min) *Enoxaparin/Lovenox 30 mg SQ daily (WT < 150 kg, CrCl > 10-29 mL/min) *Enoxaparin/Lovenox 30 mg SQ BID (WT < 150 kg, CrCl > 30 mL/min) AND *Sequential Compression Device (SCD) Assessment and Plan - Assessment and Plan Plan: Acute CVA -Status post TPA administration -Blood pressure control -Neurochecks per unit protocol -Repeat CT had am -PT and OT as tolerated -Further per neurology Dyslipidemia -Atorvastatin when okay to p.o. Hypertension -Nicardipine as needed to keep SBP less than 180 -Resume home meds when p.o. Diabetes mellitus -Insulin sliding scale DVT GI prophylaxis -SCDs -Hold pharmacological DVT prophylaxis until 24 hours post TPA -ADA diet 35 minutes of critical H&P: Quality - VTE Deep Vein Thrombosis/Pulmonary Embolism Present on Admission: No
[2018-09-14 20:10] LABS: Chol/HDL Ratio 4.09 Ratio; HDL Cholesterol 39.3 mg/dL (40.0-60.0)
[2018-09-15] MEDS: Insulin NovoLOG Aspart Correctional Sugar Inj SQ SCH ×5 (00:36→23:57)
[2018-09-15] MEDS: Sod Chloride 0.9% Inj 1,000 ML IV.CONT SCH ×2 (06:25→18:29)
[2018-09-15] MEDS ORDERED: Gadobutrol PF 10 MMOL/10 ML Vial (for RAD) IV.SIG ONE (09:09)
--- NOTE | 2018-09-15 09:32 | MR ---
EXAM DATE: 09/15/2018 9:22 AM EST AGE/SEX: 68 years / Female INDICATIONS: Right sided weakness. Post TPA. CLINICAL DATA: This is the patient's initial encounter. Patient reports that signs and symptoms have been present for 2 days and indicates a pain score of 0/10. MEDICAL/SURGICAL HISTORY: Hypertension. Diabetes mellitus type II. Tonsillectomy. Bilateral oo pherectomy. COMPARISON: [facility], CT HEAD W/O CONTRAST, 09/14/2018. . TECHNIQUE: Multiplanar, multisequence examination of the brain was performed without and with 8cc ml Gadavist (gadobutrol) contrast as a single exam dose. FINDINGS: Cerebrum: The ventricles are normal for age. No evidence of midline shift, mass lesion, hemorrhage or acute infarction. No extraaxial fluid collections are seen. The pituitary gland and suprasellar cistern are normal in configuration. White Matter: No significant signal abnormalities are seen in the white matter. Posterior Fossa: The cerebellum and brainstem are intact. The 4th ventricle is midline. The cerebel lopontine angle is unremarkable. The cerebellar tonsils are normal in position. Diffusion Imaging: No focal areas of restricted diffusion are seen. No evidence of acute infarction . Extracranial: The visualized portions of the orbits and paranasal sinuses are unremarkable. Post Contrast: No abnormal areas of parenchymal or dural enhancement. No evidence of blood-brain ba rrier breakdown. CONCLUSION: 1. Negative MR Brain with and without contrast. 2. No evidence of acute infarct, hemorrhage, mass, edema or enhancing lesions. Electronically signed by: Yohan Henriquez MD 09/15/2018 9:30 AM EST
[2018-09-15] MEDS: Acetaminophen 325 MG Tablet PO PRN ×2 (11:56→19:17)
--- NOTE | 2018-09-15 15:28 | ECHRPT ---
Indication: CVA/TIA CONCLUSIONS Normal left ventricular size. Wall thickness is measured at the upper limits of normal. The left ventricular systolic function is low normal with an estimated ejection fraction in the rang e of 50- 55%. Trace mitral valve regurgitation. Aortic valve sclerosis is present. There is trace tricuspid valve regurgitation. The estimated pulmonary arterial pressure is 35 mmHg. Mild pulmonary valve regurgitation. BP: 147 / 66 HR: 60 Rhythm: MEASUREMENTS (Male / Female) Normal Values Technical Quality:Fair 2D ECHO LV Diastolic Diameter PLAX 4.4 cm 4.2 - 5.9 / 3.9 - 5.3 cm LV Systolic Diameter PLAX 2.9 cm IVS Diastolic Thickness 1.0 cm 0.6 - 1.0 / 0.6 - 0.9 cm LVPW Diastolic Thickness 1.0 cm 0.6 - 1.0 / 0.6 - 0.9 cm LV Relative Wall Thickness 0.5 RV Internal Dim ED PLAX 3.4 cm LVOT Diameter 2.0 cm Aortic Root Diameter 2.3 cm LA Systolic Diameter LX 3.4 cm 3.0 - 4.0 / 2.7 - 3.8 cm DOPPLER AV Peak Velocity 159.0 cm/s AV Peak Gradient 10.1 mmHg LVOT Peak Velocity 121.0 cm/s LVOT Peak Gradient 5.9 mmHg AV Area Cont Eq pk 2.4 cm Mitral E Point Velocity 87.6 cm/s Mitral A Point Velocity 144.0 cm/s Mitral E to A Ratio 0.6 LV E' Lateral Velocity 8.1 cm/s Mitral E to LV E' Lateral Ratio 10.8 LV E' Septal Velocity 5.2 cm/s Mitral E to LV E' Septal Ratio 16.9 TR Peak Velocity 248.0 cm/s TR Peak Gradient 24.6 mmHg Right Atrial Pressure 10.0 mmHg Pulmonary Artery Systolic Pressu 34.6 mmHg Right Ventricular Systolic Press 34.6 mmHg PV Peak Velocity 54.2 cm/s PV Peak Gradient 1.2 mmHg FINDINGS LEFT VENTRICLE Normal left ventricular size. Wall thickness is measured at the upper limits of normal. The left ventricular systolic function is low normal with an estimated ejection fraction in the rang e of 50- 55%. RIGHT VENTRICLE Normal right ventricular size and systolic function. LEFT ATRIUM The left atrial size is normal. RIGHT ATRIUM The right atrial size is normal. ATRIAL SEPTUM Normal atrial septal thickness without atrial level shunting by limited color doppler interrogation. AORTA The aortic root and proximal ascending aorta are normal in size on limited imaging. MITRAL VALVE Trace mitral valve regurgitation. AORTIC VALVE Trileaflet aortic valve. Aortic valve sclerosis is present. TRICUSPID VALVE There is trace tricuspid valve regurgitation. The estimated pulmonary arterial pressure is 35 mmHg. PULMONARY VALVE Mild pulmonary valve regurgitation. VESSELS The inferior vena cava is normal in size. PERICARDIUM No pericardial effusion. Patrick Brown MD, FACC (Electronically Signed) Final Date:15 September 2018 15:27
--- NOTE | 2018-09-15 17:51 | ECG ---
Date Performed: 09/14/2018 Time Performed: 14:31:42 PTAGE: 68 years EKG: Sinus rhythm MARKED LEFT AXIS DEVIATION LEFT BUNDLE BRANCH BLOCK Since the previous tracing, no significant marquez e noted ABNORMAL ECG PREVIOUS TRACING : 08/08/2018 20.41 DOCTOR: Baldo Crane Interpretating Date/Time 09/15/2018 17:33:37
[2018-09-15] MEDS: hydrALAZINE HCl Inj 20 MG/ML Vial IV.PUSH PRN (18:43)
[2018-09-15 18:48] LABS: Chol/HDL Ratio 4.85 Ratio; HDL Cholesterol 32.1 mg/dL (40.0-60.0)
--- NOTE | 2018-09-15 19:55 | CT ---
EXAM DATE: 09/15/2018 7:43 PM EST AGE/SEX: 68 years / Female INDICATIONS: 24 hour post TPA scan. CLINICAL DATA: This is the patient's subsequent encounter. Patient reports that signs and symptoms h ave been present for 1 day and indicates a pain score of Nonresponsive. MEDICAL/SURGICAL HISTORY: Diabetes mellitus type II. Hypertension. None. RADIATION DOSE: 37.51 CTDI (mGy) COMPARISON: [facility], CT HEAD W/O CONTRAST, 09/14/2018. [facility] [place] W/O CONTRAST, 09/15/2018. . TECHNIQUE: CT of the head without contrast. Using automated exposure control and adjustment of the mA and/or kV according to patient size, radiation dose was kept as low as reasonably achievable to ob tain optimal diagnostic quality images. DICOM format image data is available electronically for revi ew and comparison. FINDINGS: Cerebrum: The ventricles are normal for age. No evidence of midline shift, mass lesion, hemorrhage or acute infarction. No extraaxial fluid collections are seen. Posterior Fossa: The cerebellum and brainstem are intact. The 4th ventricle is midline. The cerebe llopontine angle is unremarkable. Extracranial: The visualized portion of the orbits is intact. Skull: The calvaria is intact. No evidence of skull fracture. CONCLUSION: Negative CT examination of the head. . Electronically signed by: Curry Maher MD 09/15/2018 7:53 PM EST
[2018-09-15] MEDS: Metoprolol Inj 5 MG/5 ML Vial IV.PUSH SCH (20:20)
--- NOTE | 2018-09-15 22:52 | MB ---
cc: Cali Shelley MD, PhD DATE: 09/15/2018 REASON FOR CONSULTATION: Stroke. HISTORY OF PRESENT ILLNESS: This is a pleasant 68-year-old female known to me who I evaluated yesterday at [facility] [facility] via teleneurology, who presented with acute onset of right-sided weakness due to acute stroke. The patient was a candidate for IV TPA and did receive IV TPA per protocol. Initial CT of the brain was negative. CTA of the neck was normal. CTA of the brain: No large vessel occlusion. Therefore, she was not a candidate for intervention. She has since been transferred to the main [facility] ICU for close neuro checks and monitoring. She states that she has had improvement in her right-sided strength since TPA was administered, but is not back to normal. PAST HISTORY: As noted previously, diabetes, hypertension, hysterectomy, left bundle branch block and sciatica. CURRENT MEDICATIONS: 1. Tylenol. 2. Apresoline p.r.n. 3. NovoLog insulin. 4. Trandate. NEUROLOGICAL EXAMINATION: VITAL SIGNS: Blood pressure 165/76, pulse is 56, respirations are 18. HIGHER CORTICAL FUNCTION: She is alert and oriented. Speech normal. Cranial nerves are intact. MOTOR EXAMINATION: She is 4/5 in strength in the right arm and the right leg and 5/5 on the left, both the arm and the leg. Reflexes are 2+, symmetric. IMAGING STUDIES: MRI of the brain is normal. No evidence of acute stroke. CT of the brain 24 hours post-TPA is currently pending. Echocardiogram: EF 50%-55%. Aortic valve sclerosis is present. Trace tricuspid regurgitation is seen. Mild pulmonary valve regurgitation, no embolic source seen. IMPRESSION: Acute left hemisphere stroke, much improved following IV TPA. RECOMMENDATION: Followup on the 24-hour post CT of the brain. If that is negative, we will start therapy with antiplatelet therapy, continue also with physical therapy once stable. I also recommend statin therapy because of the elevated LDL. Cali Shelley MD, PhD NINFA/clara , 07:10 PM , 07:15 PM
[2018-09-16] MEDS: hydrALAZINE HCl Inj 20 MG/ML Vial IV.PUSH PRN (00:15)
[2018-09-16] MEDS: Acetaminophen 325 MG Tablet PO PRN ×2 (01:16→08:31)
[2018-09-16] MEDS: Metoprolol Inj 5 MG/5 ML Vial IV.PUSH SCH ×5 (02:30→20:15)
[2018-09-16] MEDS: Insulin NovoLOG Aspart Correctional Sugar Inj SQ SCH ×3 (05:14→17:45)
[2018-09-16] MEDS: Sod Chloride 0.9% Inj 1,000 ML IV.CONT SCH (08:29)
--- NOTE | 2018-09-16 13:37 | P.PNNEU ---
Subjective Subjective Comments: Pt feels right sided strength is normal. Speech improved Active Medications: Active Medications Acetaminophen (Tylenol) 650 mg PO Q6H PRN PRN Reason: T 101 OR ABOVE OR PAIN 1-10 Last Admin: 09/16/18 08:31 Dose: 650 mg Aspirin (Aspirin) 325 mg PO DAILY [facility] Atorvastatin Calcium (Lipitor) 10 mg PO DAILY [facility] Last Admin: 09/16/18 08:29 Dose: 10 mg Dextrose (D50w Vial) 50 ml IV.PUSH UNSCH PRN PRN Reason: PER HYPOGLYCEMIA PROTOCOL Glimepiride (Amaryl) 4 mg PO QAM [facility] Glucagon (Glucagon Inj) 1 mg OTHER UNSCH PRN PRN Reason: for Hypoglycemia Protocol Hydralazine HCl (Apresoline Inj) 10 mg IV.PUSH Q4H PRN PRN Reason: SYS BP GREATER THAN 180 [facility] Last Admin: 09/16/18 00:15 Dose: 10 mg Sodium Chloride (Ns Inj) 1,000 mls @ 70 mls/hr IV.CONT .[id number] [facility] Last Infusion: 09/16/18 10:22 Dose: 70 mls/hr Nicardipine HCl 25 mg/ Sodium (Chloride) 250 mls @ 50 mls/hr IV.CONT TITRATE PRN; Protocol PRN Reason: Per Protocol Insulin Aspart (Novolog Insulin Correctional Sugar Inj) 0 unit SQ Q6HR [facility]; Protocol Last Admin: 09/16/18 12:35 Dose: Not Given Labetalol HCl (Trandate Inj) 10 mg IV.PUSH Q2H PRN PRN Reason: SBP>180, DBP>110 Metoprolol Tartrate (Lopressor Inj) 5 mg IV.PUSH Q6H [facility] Last Admin: 09/16/18 08:28 Dose: 2.5 mg Ondansetron HCl (Zofran Inj) 4 mg IV.PUSH Q6H PRN PRN Reason: NAUSEA Last Admin: 09/16/18 08:29 Dose: 4 mg Allergies/Adverse Reactions: Allergies Allergy/AdvReac Type Severity Reaction Status Date / Time penicillin G Allergy Severe HIVES/THROAT Verified 09/14/18 14:38 SWELLING latex Allergy Intermediate Hives Verified 09/14/18 14:38 metformin Allergy Intermediate GI UPSET Verified 09/14/18 14:38 INSULIN Allergy Intermediate Rash Uncoded 08/08/18 14:35 no narcotics lowers b/p too AdvReac Severe b/p drops Uncoded 08/08/18 14:35 much with all narcotics Physical Exam Vital signs: Vital Signs 09/15/18 14:00 09/15/18 14:02 09/15/18 14:32 Temperature Pulse Rate 56 L 58 L 59 L Respiratory Rate 14 13 14 Blood Pressure 151/72 H 153/72 H Pulse Oximetry 100 99 100 09/15/18 15:00 09/15/18 15:02 09/15/18 15:32 Temperature Pulse Rate 57 L 56 L 59 L Respiratory Rate 16 14 13 Blood Pressure 145/70 H 162/72 H Pulse Oximetry 100 100 100 09/15/18 16:00 09/15/18 16:02 09/15/18 16:32 Temperature 98.1 F Pulse Rate 57 L 54 L 65 Respiratory Rate 20 13 21 Blood Pressure 155/70 H 151/77 H Pulse Oximetry 100 99 100 09/15/18 17:00 09/15/18 17:02 09/15/18 17:32 Temperature Pulse Rate 61 57 L 62 Respiratory Rate 13 17 15 Blood Pressure 170/78 H 178/92 H Pulse Oximetry 100 100 99 09/15/18 18:00 09/15/18 18:02 09/15/18 18:32 Temperature Pulse Rate 61 56 L 66 Respiratory Rate 20 18 15 Blood Pressure 165/76 H 205/98 H Pulse Oximetry 100 100 100 09/15/18 18:40 09/15/18 19:00 09/15/18 19:02 Temperature Pulse Rate 68 99 H 97 H Respiratory Rate 21 20 19 Blood Pressure 196/96 H 157/72 H Pulse Oximetry 100 99 100 09/15/18 19:38 09/15/18 20:00 09/15/18 20:02 Temperature 99.4 F Pulse Rate 111 H 99 H 96 H Respiratory Rate 44 H 19 18 Blood Pressure 137/68 131/67 Pulse Oximetry 97 100 100 09/15/18 20:32 09/15/18 21:00 09/15/18 21:02 Temperature Pulse Rate 70 70 72 Respiratory Rate 14 14 13 Blood Pressure 133/80 132/69 Pulse Oximetry 100 100 100 09/15/18 21:12 09/15/18 21:32 09/15/18 22:00 Temperature Pulse Rate 78 72 Respiratory Rate 30 H 11 L Blood Pressure 147/75 H Pulse Oximetry 99 100 100 09/15/18 22:02 09/15/18 22:32 09/15/18 23:00 Temperature Pulse Rate 71 72 68 Respiratory Rate 14 14 18 Blood Pressure 136/65 118/58 L Pulse Oximetry 100 100 100 09/15/18 23:02 09/15/18 23:32 09/16/18 00:00 Temperature 99.2 F Pulse Rate 75 79 75 Respiratory Rate 20 31 H 16 Blood Pressure 124/66 139/71 Pulse Oximetry 99 100 96 09/16/18 00:02 09/16/18 00:04 09/16/18 00:32 Temperature Pulse Rate 58 L 68 73 Respiratory Rate 10 L 12 12 Blood Pressure 205/88 H 190/71 H 172/77 H Pulse Oximetry 100 99 100 09/16/18 01:00 09/16/18 01:02 09/16/18 01:32 Temperature Pulse Rate 89 87 93 H Respiratory Rate 49 H 23 21 Blood Pressure 145/72 H 152/79 H Pulse Oximetry 99 99 98 09/16/18 02:00 09/16/18 02:02 09/16/18 02:32 Temperature Pulse Rate 77 77 90 Respiratory Rate 12 13 13 Blood Pressure 138/63 143/67 H Pulse Oximetry 99 99 99 09/16/18 03:00 09/16/18 03:02 09/16/18 03:32 Temperature Pulse Rate 83 93 H 108 H Respiratory Rate 14 23 32 H Blood Pressure 140/73 133/62 Pulse Oximetry 99 98 98 09/16/18 04:00 09/16/18 04:02 09/16/18 04:32 Temperature 99.0 F Pulse Rate 68 69 68 Respiratory Rate 11 L 17 14 Blood Pressure 124/58 L 146/76 H Pulse Oximetry 99 99 99 09/16/18 05:00 09/16/18 05:02 09/16/18 05:32 Temperature Pulse Rate 74 71 81 Respiratory Rate 14 13 17 Blood Pressure 153/75 H 168/78 H Pulse Oximetry 99 99 98 09/16/18 06:00 09/16/18 06:02 09/16/18 06:32 Temperature Pulse Rate 68 71 73 Respiratory Rate 13 15 12 Blood Pressure 170/79 H 178/81 H Pulse Oximetry 99 99 99 09/16/18 07:00 09/16/18 07:02 09/16/18 07:32 Temperature Pulse Rate 66 69 89 Respiratory Rate 14 14 24 Blood Pressure 176/79 H 170/77 H Pulse Oximetry 99 99 99 09/16/18 08:00 09/16/18 08:02 09/16/18 08:32 Temperature 99.3 F Pulse Rate 95 H 124 H 92 H Respiratory Rate 20 35 H 26 H Blood Pressure 138/76 138/76 137/73 Pulse Oximetry 96 97 96 09/16/18 09:00 09/16/18 09:02 09/16/18 09:32 Temperature Pulse Rate 91 H 90 106 H Respiratory Rate 25 H 22 15 Blood Pressure 135/72 166/79 H Pulse Oximetry 96 95 09/16/18 10:00 09/16/18 10:02 Temperature Pulse Rate 77 78 Respiratory Rate 17 17 Blood Pressure 138/63 Pulse Oximetry Intake & Output 09/15/18 09/16/18 09/16/18 18:59 06:59 18:59 Intake Total 1320 / 1320 240 / 240 800 / 800 Output Total 680 / 680 600 / 600 Balance 640 / 640 -360 / -360 800 / 800 Weight 77.6 kg Intake: IV 1000 / 1000 800 / 800 NS Inj 1,000 ML @ 70 mls/hr IV. 1000 / 1000 800 / 800 CONT .[id number] JENNA Rx#: [id number] Oral 320 / 320 240 / 240 Output: Urine 680 / 680 600 / 600 Other: # Voids 3 3 - Routine Neurological Exam alert, speech normal CN intact MOTOR 5/5 BUe and BLE Objective Radiology Results: CT brain 24 hr post TPA--normal. No hemorrhage Laboratory Results - last 24 hr 09/15/18 09/15/18 09/16/18 18:00 23:26 05:06 POC Glucose 144 H 118 H Triglycerides 128 Cholesterol 156 LDL Cholesterol, Calc 98 HDL Cholesterol 32.1 L Cholesterol/HDL Ratio 4.85 09/16/18 12:26 POC Glucose 154 H Triglycerides Cholesterol LDL Cholesterol, Calc HDL Cholesterol Cholesterol/HDL Ratio Review/Management - Review/Management Plan: start aspirin 325 mg daily ok to transfer to floor
[2018-09-16 13:49] LABS: Hemoglobin A1c 6.6 % (4.3-6.0)
--- NOTE | 2018-09-16 14:12 | P.PNCC ---
Subjective Subjective Remarks/Hospital Course: Late entry for patient seen 09/15 09/14: 68-year-old female brought as a stroke alert. Her daughter reports that she called her at 12 when she had an onset of a headache and dizziness. Paramedics were called. They found the patient with right facial weakness and some right-sided weakness. According to paramedics the patient stopped talking to them while she was en route to the hospital. Patient has a history of hypertension. Her blood pressure in the field was 200/120. The patient is not able to give any history at this time. 09/15: Resting comfortably, minimal right sided weakness, speech slightly slurred Objective Vital Signs / I&O: Vital Signs 09/15/18 14:32 09/15/18 15:00 09/15/18 15:02 Temperature Pulse Rate 59 L 57 L 56 L Respiratory Rate 14 16 14 Blood Pressure 153/72 H 145/70 H Pulse Oximetry 100 100 100 09/15/18 15:32 09/15/18 16:00 09/15/18 16:02 Temperature 98.1 F Pulse Rate 59 L 57 L 54 L Respiratory Rate 13 20 13 Blood Pressure 162/72 H 155/70 H Pulse Oximetry 100 100 99 09/15/18 16:32 09/15/18 17:00 09/15/18 17:02 Temperature Pulse Rate 65 61 57 L Respiratory Rate 21 13 17 Blood Pressure 151/77 H 170/78 H Pulse Oximetry 100 100 100 09/15/18 17:32 09/15/18 18:00 09/15/18 18:02 Temperature Pulse Rate 62 61 56 L Respiratory Rate 15 20 18 Blood Pressure 178/92 H 165/76 H Pulse Oximetry 99 100 100 09/15/18 18:32 09/15/18 18:40 09/15/18 19:00 Temperature Pulse Rate 66 68 99 H Respiratory Rate 15 21 20 Blood Pressure 205/98 H 196/96 H Pulse Oximetry 100 100 99 09/15/18 19:02 09/15/18 19:38 09/15/18 20:00 Temperature 99.4 F Pulse Rate 97 H 111 H 99 H Respiratory Rate 19 44 H 19 Blood Pressure 157/72 H 137/68 Pulse Oximetry 100 97 100 09/15/18 20:02 09/15/18 20:32 09/15/18 21:00 Temperature Pulse Rate 96 H 70 70 Respiratory Rate 18 14 14 Blood Pressure 131/67 133/80 Pulse Oximetry 100 100 100 09/15/18 21:02 09/15/18 21:12 09/15/18 21:32 Temperature Pulse Rate 72 78 Respiratory Rate 13 30 H Blood Pressure 132/69 147/75 H Pulse Oximetry 100 99 100 09/15/18 22:00 09/15/18 22:02 09/15/18 22:32 Temperature Pulse Rate 72 71 72 Respiratory Rate 11 L 14 14 Blood Pressure 136/65 118/58 L Pulse Oximetry 100 100 100 09/15/18 23:00 09/15/18 23:02 09/15/18 23:32 Temperature Pulse Rate 68 75 79 Respiratory Rate 18 20 31 H Blood Pressure 124/66 139/71 Pulse Oximetry 100 99 100 09/16/18 00:00 09/16/18 00:02 09/16/18 00:04 Temperature 99.2 F Pulse Rate 75 58 L 68 Respiratory Rate 16 10 L 12 Blood Pressure 205/88 H 190/71 H Pulse Oximetry 96 100 99 09/16/18 00:32 09/16/18 01:00 09/16/18 01:02 Temperature Pulse Rate 73 89 87 Respiratory Rate 12 49 H 23 Blood Pressure 172/77 H 145/72 H Pulse Oximetry 100 99 99 09/16/18 01:32 09/16/18 02:00 09/16/18 02:02 Temperature Pulse Rate 93 H 77 77 Respiratory Rate 21 12 13 Blood Pressure 152/79 H 138/63 Pulse Oximetry 98 99 99 09/16/18 02:32 09/16/18 03:00 09/16/18 03:02 Temperature Pulse Rate 90 83 93 H Respiratory Rate 13 14 23 Blood Pressure 143/67 H 140/73 Pulse Oximetry 99 99 98 09/16/18 03:32 09/16/18 04:00 09/16/18 04:02 Temperature 99.0 F Pulse Rate 108 H 68 69 Respiratory Rate 32 H 11 L 17 Blood Pressure 133/62 124/58 L Pulse Oximetry 98 99 99 09/16/18 04:32 09/16/18 05:00 09/16/18 05:02 Temperature Pulse Rate 68 74 71 Respiratory Rate 14 14 13 Blood Pressure 146/76 H 153/75 H Pulse Oximetry 99 99 99 09/16/18 05:32 09/16/18 06:00 09/16/18 06:02 Temperature Pulse Rate 81 68 71 Respiratory Rate 17 13 15 Blood Pressure 168/78 H 170/79 H Pulse Oximetry 98 99 99 09/16/18 06:32 09/16/18 07:00 09/16/18 07:02 Temperature Pulse Rate 73 66 69 Respiratory Rate 12 14 14 Blood Pressure 178/81 H 176/79 H Pulse Oximetry 99 99 99 09/16/18 07:32 09/16/18 08:00 09/16/18 08:02 Temperature 99.3 F Pulse Rate 89 95 H 124 H Respiratory Rate 24 20 35 H Blood Pressure 170/77 H 138/76 138/76 Pulse Oximetry 99 96 97 09/16/18 08:32 09/16/18 09:00 09/16/18 09:02 Temperature Pulse Rate 92 H 91 H 90 Respiratory Rate 26 H 25 H 22 Blood Pressure 137/73 135/72 Pulse Oximetry 96 96 95 09/16/18 09:32 09/16/18 10:00 09/16/18 10:02 Temperature Pulse Rate 106 H 77 78 Respiratory Rate 15 17 17 Blood Pressure 166/79 H 138/63 Pulse Oximetry 09/16/18 10:32 09/16/18 11:00 09/16/18 11:02 Temperature Pulse Rate 83 75 78 Respiratory Rate 17 15 14 Blood Pressure 136/59 L 145/70 H Pulse Oximetry 09/16/18 11:32 09/16/18 12:00 09/16/18 12:02 Temperature 98.6 F Pulse Rate 78 64 70 Respiratory Rate 13 12 13 Blood Pressure 146/68 H 150/72 H Pulse Oximetry 99 09/16/18 12:32 09/16/18 13:00 09/16/18 13:02 Temperature Pulse Rate 81 73 68 Respiratory Rate 31 H 21 12 Blood Pressure 121/59 L 132/71 Pulse Oximetry 09/16/18 13:32 09/16/18 14:00 Temperature Pulse Rate 80 78 Respiratory Rate 18 14 Blood Pressure 169/79 H 154/72 H Pulse Oximetry Intake & Output 09/15/18 09/16/18 09/16/18 18:59 06:59 18:59 Intake Total 1320 / 1320 240 / 240 800 / 800 Output Total 680 / 680 600 / 600 Balance 640 / 640 -360 / -360 800 / 800 Weight 77.6 kg Intake: IV 1000 / 1000 800 / 800 NS Inj 1,000 ML @ 70 mls/hr IV. 1000 / 1000 800 / 800 CONT .[id number] JENNA Rx#: [id number] Oral 320 / 320 240 / 240 Output: Urine 680 / 680 600 / 600 Other: # Voids 3 3 Result Diagrams: 09/14/18 13:15 09/14/18 13:15 Objective Remarks: Routine HEENT Exam Head: Present: normocephalic, atraumatic Eye: Present: EOMI, conjunctivae pink ENT: Present: mucous membranes moist - Routine Neck Exam Present: supple. Absent: JVD, carotid bruit - Routine Respiratory Exam Absent: accessory muscle use, rhonchi, stridor, wheezes - Routine Cardiovascular Exam Present: RRR, S1, S2 - Routine Abdominal Exam Present: soft, normoactive bowel sounds - Routine Extremities Exam Absent: cyanosis, clubbing, edema - Routine Skin Exam Present: intact. Absent: cyanosis, erythema - Routine Neurological Exam Present: alert, moving all extremities right sided weakness Assessment and Plan - Assessment and Plan Plan: Acute CVA -Status post TPA administration -Blood pressure control -Neurochecks per unit protocol -Repeat CT had am -PT and OT as tolerated -antiplatelet therapy per Neurology -Further per neurology Dyslipidemia -Atorvastatin when okay to p.o. Hypertension -Nicardipine as needed to keep SBP less than 180 -Resume home meds when p.o. Diabetes mellitus -Insulin sliding scale DVT GI prophylaxis -SCDs -Hold pharmacological DVT prophylaxis until 24 hours post TPA -ADA diet
[2018-09-16] MEDS: Aspirin 325 MG Tablet PO SCH (14:28)
[2018-09-16] MEDS: Glimepiride 4 MG Tablet PO SCH (14:29)
--- NOTE | 2018-09-16 14:33 | P.PNCC ---
Subjective Subjective Remarks/Hospital Course: Late entry for patient seen 09/15 09/14: 68-year-old female brought as a stroke alert. Her daughter reports that she called her at 12 when she had an onset of a headache and dizziness. Paramedics were called. They found the patient with right facial weakness and some right-sided weakness. According to paramedics the patient stopped talking to them while she was en route to the hospital. Patient has a history of hypertension. Her blood pressure in the field was 200/120. The patient is not able to give any history at this time. 09/15: Resting comfortably, minimal right sided weakness, speech slightly slurred 09/16: Sitting up in chair today appears comfortable. Mild right-sided weakness persists. Discussed with Dr. Karsten avila to transfer to the [facility] Objective Vital Signs / I&O: Vital Signs 09/15/18 15:00 09/15/18 15:02 09/15/18 15:32 Temperature Pulse Rate 57 L 56 L 59 L Respiratory Rate 16 14 13 Blood Pressure 145/70 H 162/72 H Pulse Oximetry 100 100 100 09/15/18 16:00 09/15/18 16:02 09/15/18 16:32 Temperature 98.1 F Pulse Rate 57 L 54 L 65 Respiratory Rate 20 13 21 Blood Pressure 155/70 H 151/77 H Pulse Oximetry 100 99 100 09/15/18 17:00 09/15/18 17:02 09/15/18 17:32 Temperature Pulse Rate 61 57 L 62 Respiratory Rate 13 17 15 Blood Pressure 170/78 H 178/92 H Pulse Oximetry 100 100 99 09/15/18 18:00 09/15/18 18:02 09/15/18 18:32 Temperature Pulse Rate 61 56 L 66 Respiratory Rate 20 18 15 Blood Pressure 165/76 H 205/98 H Pulse Oximetry 100 100 100 09/15/18 18:40 09/15/18 19:00 09/15/18 19:02 Temperature Pulse Rate 68 99 H 97 H Respiratory Rate 21 20 19 Blood Pressure 196/96 H 157/72 H Pulse Oximetry 100 99 100 09/15/18 19:38 09/15/18 20:00 09/15/18 20:02 Temperature 99.4 F Pulse Rate 111 H 99 H 96 H Respiratory Rate 44 H 19 18 Blood Pressure 137/68 131/67 Pulse Oximetry 97 100 100 09/15/18 20:32 09/15/18 21:00 09/15/18 21:02 Temperature Pulse Rate 70 70 72 Respiratory Rate 14 14 13 Blood Pressure 133/80 132/69 Pulse Oximetry 100 100 100 09/15/18 21:12 09/15/18 21:32 09/15/18 22:00 Temperature Pulse Rate 78 72 Respiratory Rate 30 H 11 L Blood Pressure 147/75 H Pulse Oximetry 99 100 100 09/15/18 22:02 09/15/18 22:32 09/15/18 23:00 Temperature Pulse Rate 71 72 68 Respiratory Rate 14 14 18 Blood Pressure 136/65 118/58 L Pulse Oximetry 100 100 100 09/15/18 23:02 09/15/18 23:32 09/16/18 00:00 Temperature 99.2 F Pulse Rate 75 79 75 Respiratory Rate 20 31 H 16 Blood Pressure 124/66 139/71 Pulse Oximetry 99 100 96 09/16/18 00:02 09/16/18 00:04 09/16/18 00:32 Temperature Pulse Rate 58 L 68 73 Respiratory Rate 10 L 12 12 Blood Pressure 205/88 H 190/71 H 172/77 H Pulse Oximetry 100 99 100 09/16/18 01:00 09/16/18 01:02 09/16/18 01:32 Temperature Pulse Rate 89 87 93 H Respiratory Rate 49 H 23 21 Blood Pressure 145/72 H 152/79 H Pulse Oximetry 99 99 98 09/16/18 02:00 09/16/18 02:02 09/16/18 02:32 Temperature Pulse Rate 77 77 90 Respiratory Rate 12 13 13 Blood Pressure 138/63 143/67 H Pulse Oximetry 99 99 99 09/16/18 03:00 09/16/18 03:02 09/16/18 03:32 Temperature Pulse Rate 83 93 H 108 H Respiratory Rate 14 23 32 H Blood Pressure 140/73 133/62 Pulse Oximetry 99 98 98 09/16/18 04:00 09/16/18 04:02 09/16/18 04:32 Temperature 99.0 F Pulse Rate 68 69 68 Respiratory Rate 11 L 17 14 Blood Pressure 124/58 L 146/76 H Pulse Oximetry 99 99 99 09/16/18 05:00 09/16/18 05:02 09/16/18 05:32 Temperature Pulse Rate 74 71 81 Respiratory Rate 14 13 17 Blood Pressure 153/75 H 168/78 H Pulse Oximetry 99 99 98 09/16/18 06:00 09/16/18 06:02 09/16/18 06:32 Temperature Pulse Rate 68 71 73 Respiratory Rate 13 15 12 Blood Pressure 170/79 H 178/81 H Pulse Oximetry 99 99 99 09/16/18 07:00 09/16/18 07:02 09/16/18 07:32 Temperature Pulse Rate 66 69 89 Respiratory Rate 14 14 24 Blood Pressure 176/79 H 170/77 H Pulse Oximetry 99 99 99 09/16/18 08:00 09/16/18 08:02 09/16/18 08:32 Temperature 99.3 F Pulse Rate 95 H 124 H 92 H Respiratory Rate 20 35 H 26 H Blood Pressure 138/76 138/76 137/73 Pulse Oximetry 96 97 96 09/16/18 09:00 09/16/18 09:02 09/16/18 09:32 Temperature Pulse Rate 91 H 90 106 H Respiratory Rate 25 H 22 15 Blood Pressure 135/72 166/79 H Pulse Oximetry 96 95 09/16/18 10:00 09/16/18 10:02 09/16/18 10:32 Temperature Pulse Rate 77 78 83 Respiratory Rate 17 17 17 Blood Pressure 138/63 136/59 L Pulse Oximetry 09/16/18 11:00 09/16/18 11:02 09/16/18 11:32 Temperature Pulse Rate 75 78 78 Respiratory Rate 15 14 13 Blood Pressure 145/70 H 146/68 H Pulse Oximetry 09/16/18 12:00 09/16/18 12:02 09/16/18 12:32 Temperature 98.6 F Pulse Rate 64 70 81 Respiratory Rate 12 13 31 H Blood Pressure 150/72 H 121/59 L Pulse Oximetry 99 09/16/18 13:00 09/16/18 13:02 09/16/18 13:32 Temperature Pulse Rate 73 68 80 Respiratory Rate 21 12 18 Blood Pressure 132/71 169/79 H Pulse Oximetry 09/16/18 14:00 Temperature Pulse Rate 78 Respiratory Rate 14 Blood Pressure 154/72 H Pulse Oximetry Intake & Output 09/15/18 09/16/18 09/16/18 18:59 06:59 18:59 Intake Total 1320 / 1320 240 / 240 800 / 800 Output Total 680 / 680 600 / 600 Balance 640 / 640 -360 / -360 800 / 800 Weight 77.6 kg Intake: IV 1000 / 1000 800 / 800 NS Inj 1,000 ML @ 70 mls/hr IV. 1000 / 1000 800 / 800 CONT .[id number] JENNA Rx#: [id number] Oral 320 / 320 240 / 240 Output: Urine 680 / 680 600 / 600 Other: # Voids 3 3 Result Diagrams: 09/14/18 13:15 09/14/18 13:15 Objective Remarks: Routine HEENT Exam Head: Present: normocephalic, atraumatic Eye: Present: EOMI, conjunctivae pink ENT: Present: mucous membranes moist - Routine Neck Exam Present: supple. Absent: JVD, carotid bruit - Routine Respiratory Exam Absent: accessory muscle use, rhonchi, stridor, wheezes - Routine Cardiovascular Exam Present: RRR, S1, S2 - Routine Abdominal Exam Present: soft, normoactive bowel sounds - Routine Extremities Exam Absent: cyanosis, clubbing, edema - Routine Skin Exam Present: intact. Absent: cyanosis, erythema - Routine Neurological Exam Present: alert, moving all extremities. Right hemiparesis. Follows commands x4 Assessment and Plan - Assessment and Plan Plan: Acute CVA -Status post TPA administration -Blood pressure control -Neurochecks per unit protocol -Repeat CT and MRI negative -PT and OT as tolerated -antiplatelet therapy per Neurology Dyslipidemia -Atorvastatin Hypertension -Nicardipine as needed to keep SBP less than 180. Currently weaned off -Holding home antihypertensive per Dr. Shelley Diabetes mellitus -Allergic to insulin. Resume oral hypoglycemic DVT GI prophylaxis -SCDs -Increase activity -ADA diet Code Status: full
[2018-09-17] MEDS: Insulin NovoLOG Aspart Correctional Sugar Inj SQ SCH ×3 (00:18→13:03)
[2018-09-17] MEDS: Metoprolol Inj 5 MG/5 ML Vial IV.PUSH SCH ×3 (02:00→07:55)
[2018-09-17] MEDS: Glimepiride 4 MG Tablet PO SCH (08:35)
[2018-09-17] MEDS: Aspirin 325 MG Tablet PO SCH (08:35)
[2018-09-17] MEDS ORDERED: Enoxaparin Inj 40 MG/0.4 ML Syringe SQ SCH (09:00)
[2018-09-17 09:10] VITALS: BP 152/67; PULSE 59; RESP 16; TEMP 98.4
[2018-09-17 10:24] VITALS: O2SAT 98
--- NOTE | 2018-09-17 10:29 | P.DCO ---
Physical Therapy Order: Evaluate and treat, Improve ambulation and Strength and gait training Speech Therapy Order: To improve: Swallowing Home Health Nursing Order: Medical education, Signs/symptoms of disease process, Medication education-adverse effect and Nursing assessment with vital signs Case Management Consult Case Management Consult-Home Health: Yes I have seen patient Samantha Anna on 09/17/18. My clinical findings support the need for the requested home health care services because: Deconditioned with increased weakness and Limited ability to care for self I certify that my clinical findings support that this patient is homebound because: Unsteady gait/balance
--- NOTE | 2018-09-17 10:35 | P.DS ---
DS: Providers Date of admission: 09/14/18 14:58 Primary care physician: Lori Flores MD Consults: 09/14/18 13:34 Consult to Neurology Stat Consulting Provider: Cali Shelley For STAT consult, spoke directly to:: jhony Reason for Consultation: Brain Attack Notified:: Office Spoke with:: DAVID Date Notified:: 09/14/18 Time Notified:: 14:01 Ordering Provider: MARCO 09/14/18 16:03 Consult to Rehab Medicine Routine Consulting Provider: Catherine Boone Reason for Consultation: Stroke patient, assist with Rehab recommendations Notified:: Service Spoke with:: SERA Date Notified:: 09/14/18 Time Notified:: 16:37 Ordering Provider: TERESA 09/16/18 13:36 Consult to Hospitalist Routine Consulting Provider: Kiran Hawley Reason for Consultation: Assume care in am 09/17/18 Notified:: Service Spoke with:: CAROLYN Date Notified:: 09/16/18 Time Notified:: 14:35 Ordering Provider: TENA Brief History from admission: HPI as documented by the admitting physician: 68-year-old female brought as a stroke alert. Her daughter reports that she called her at 12 when she had an onset of a headache and dizziness. Paramedics were called. They found the patient with right facial weakness and some right- sided weakness. According to paramedics the patient stopped talking to them while she was en route to the hospital. Patient has a history of hypertension. Her blood pressure in the field was 200/120. The patient is not able to give any history at this time. DS: Summary Patient seen on the day of discharge. She reports she is feeling much better. She is requesting to go home. In Summary , this is a 68-year-old female admitted with acute MCA stroke. Patient presented as a stroke alert. She had TPA administration. She was followed by neurology. Repeat CT and MRI negative. The patient was started on aspirin 325 mg daily and a statin. She was weaned off the Cardene drip. Her symptoms significantly improved. She is discharged home with home health and physical therapy. The patient is to continue taking all of her chronic home medications in addition to the aspirin and statin. Time Spent with Patient Total time spent providing and/or coordinating discharge services: Quality: Stroke Last date observed well: 09/14/18 Last time observed well: 13:00 Quality: VTE Deep Vein Thrombosis/Pulmonary Embolism Present on Admission: No Exam Narrative Exam Narrative: GENERAL: This is a well-nourished, well-developed patient, in no apparent distress. CARDIOVASCULAR: Normal rate and regular rhythm without murmurs, gallops, or rubs. RESPIRATORY: Good respiratory efforts. Breath sounds equal and clear to auscultation bilaterally. GASTROINTESTINAL: Abdomen soft, non-tender, non-distended. Normal active bowel sounds MUSCULOSKELETAL: Extremities without cyanosis, or edema. NEURO: Alert & Oriented x4 to person, place, time, situation. Moves all ext x4 PSYCH: Appropriate mood and affect. Results Labs on day of discharge: Labs from last 24 hours 09/17/18 09/16/18 09/16/18 06:33 23:52 17:35 POC Glucose 122 H 128 H 117 H Hemoglobin A1c 09/16/18 09/15/18 12:26 22:10 POC Glucose 154 H Hemoglobin A1c 6.6 H Impressions ITS Impressions Chest X-Ray 09/14/18 13:34 CONCLUSION: Stable linear scar at the left lung base. Otherwise, no acute cardiopulmonary abnormality is identified. Head CTA 09/14/18 13:34 CONCLUSION: 1. Negative for major branch vessel occlusion. 2. Findings were discussed with Dr. González Shelley Neck CTA 09/14/18 13:34 CONCLUSION: 1. No hemodynamically significant carotid or vertebral artery stenosis. Head MRI 09/15/18 00:00 CONCLUSION: 1. Negative MR Brain with and without contrast. 2. No evidence of acute infarct, hemorrhage, mass, edema or enhancing lesions. Head CT 09/15/18 14:00 CONCLUSION: Negative CT examination of the head. . Discharge Plan Discharge Disposition Patient Disposition: W/Home Health Service Discharge Condition Condition: Critical Discharge Order Discharge Orders: Discharge Order (Routine); Ordered 09/17/18 Ordered By: Kiran Hawley Physicians Team ED Provider: Rivera Horan Primary Care Provider: Lori Flores Attending Provider: Kiran Hawley Other Providers: Cali Shelley ; Catherine Boone Rxs /Orders / Referrals /Forms Prescriptions: New atorvastatin [Lipitor] 10 mg Tablet 10 mg PO DAILY Qty: 30 RF: 0 aspirin 325 mg Tablet 325 mg PO DAILY Qty: 30 RF: 0 Continue lisinopril 20 mg Tablet 20 mg PO DAILY RF: 0 tramadol 50 mg Tablet 50 mg PO Q8H PRN (Reason: Pain) RF: 0 amlodipine 10 mg Tablet 10 mg PO DAILY RF: 0 glimepiride 4 mg Tablet 4 mg PO QAM RF: 0 duloxetine 30 mg Capsule,Delayed Release(Dr/Ec) 1 cap PO DAILY RF: 0 omeprazole-sodium bicarbonate 20-1.1 mg-gram Capsule 1 cap PO DAILY RF: 0 gabapentin 800 mg Tablet 1 tab PO HS RF: 0 Discontinued meloxicam 15 mg Tablet 15 mg PO DAILY RF: 0 Referrals: [facility], [Agency] - See Instructions Cali Shelley MD, PhD [Physician] - 10/01/18 (Follow up with Dr. Shelley in 2 weeks.) Lori Flores MD [Primary Care Provider] - See Instructions Discharge Instructions Patient Printed Instructions: Ischemic Stroke (DC), Stroke (GEN) Status ED Status: Left Department Discharge Information Discharge Date/Time: 09/17/18 13:40
== END 2018-09-17 13:40 | disposition home health service (06) | DRG 62 ==
LOC: PHED 13:32 → PHEDH 14:58 → N03 16:41
PROVIDERS: ADMIT Family Medicine; ATTEND Family Medicine
CPT/HCPCS: 64616; 70450; 70496; 70498; 70553; 71010; 71045; 80048; 80061; 82550; 82948; 82962; 83036; 84484; 84702; 85025; 85384; 85610; 85730; 86850; 86900; 86901; 87641; 90765; 90774; 92523; 92526; 92610; 93005; 93306; 96365; 96374; 97110; 97116; 97163; 97167; 97530; 99285; A9585; C8952; G0195; J0360; J0588; J1650; J2405; J2997; J7030; Q9967